=== PATIENT | male | born 1960 | race Caucasian/White ===

== ENCOUNTER 2018-09-05 21:17 | Inpatient (IN) ==
[2018-09-05] MEDS ORDERED: Sod Chloride 0.9% Inj 1,000 ML IV.SIG ONE (21:23)
[2018-09-05] MEDS ORDERED: Morphine Inj 4 MG/ML Vial IV.PUSH ONE ×2 (21:23→23:21)
--- NOTE | 2018-09-05 21:35 | ED ---
HPI General Chief Complaint: Abdominal Pain Stated Complaint: ABD Pain Time Seen by Provider: 09/05/18 21:20 Source: patient and EMS Mode of arrival: EMS Limitations: no limitations History of Present Illness HPI narrative: 58-year-old male that presents to the ED for evaluation of nausea vomiting abdominal pain. Patient has a significant history of Crohn's disease with multiple surgeries in the past. He has had GI bleeds as well as transfusions. Last surgery appears to be 2 years ago. Per patient he follows with Dr. Angeles. He has not seen in our for about a year and a half per patient. He takes currently no medications whatsoever. Unclear as to why. Per patient the symptoms started since last night. He is been very nauseous and has vomited. He states that he has been having a lot of stools in his ileostomy bag is full of stool and leaking. Per patient the pain is 8 out of 10. He was given Zofran on his way here. On initial examination patient is somewhat somnolent but arousable. He does appear to answer questions appropriately. He denies any fevers chills or sweats. He has not seen anybody for this. He denies any bleeding at this time. Related Data Home Medications Medication Instructions Recorded Confirmed No Known Home Medications 09/05/18 09/05/18 Allergies Allergy/AdvReac Type Severity Reaction Status Date / Time No Known Allergies Allergy Verified 07/15/18 21:28 Review of Systems ROS: all other systems reviewed are negative COUNT INCLUDES THE [facility] Medical History Medical History Crohn's disease (Acute) Surgical History Surgical History History of ileostomy (Acute) Family History Family History Other Family history normal Social History Social History Substance History: No History of Abuse Second Hand Smoke Exposure: No Smoking Status: Never smoker How Often Do You Have a Drink Containing Alcohol: Monthly or less Recent Travel in [facility] within the Last 8 Weeks: No Recent Out of Country Travel within the Last 8 Weeks: No Immunization History Tetanus Immunization: Unsure Exam Narrative Exam Narrative: GENERAL: Well appearing SKIN: Focused skin assessment warm/dry. HEAD: Atraumatic. Normocephalic. EYES: Pupils equal and round. No scleral icterus. No injection or drainage. ENT: No nasal bleeding or discharge. Mucous membranes pink and moist. Tongue is midline. No uvula deviation. NECK: Trachea midline. No JVD. CARDIOVASCULAR: Regular rate and rhythm. No murmur appreciated. RESPIRATORY: No accessory muscle use. Clear to auscultation. Breath sounds equal bilaterally. GASTROINTESTINAL: Abdomen soft, distended and tender to touch. Patient has an ileostomy bag with some leakage around the bag. Bag appears to be full of liquidy stool. Hepatic and splenic margins not palpable. MUSCULOSKELETAL: No obvious deformities. No clubbing. No cyanosis. No edema. Full range of motion of the upper and lower extremities bilaterally. 2+ pulses bilaterally. NEUROLOGICAL: Awake and alert. No obvious cranial nerve deficits. Motor grossly within normal limits. Normal speech. PSYCHIATRIC: Appropriate mood and affect; insight and judgment normal. Course Initial Documented Vital Signs Temperature 97.7 F 09/05/18 21:18 Pulse Rate 67 09/05/18 21:18 Respiratory Rate 22 09/05/18 21:18 Blood Pressure 165/108 H 09/05/18 21:18 Pulse Oximetry 99 09/05/18 21:18 Last Documented Vital Signs Temperature 97.7 F 09/05/18 21:18 Pulse Rate 68 09/06/18 01:55 Respiratory Rate 20 09/06/18 01:55 Blood Pressure 155/98 H 09/06/18 01:55 Pulse Oximetry 99 09/06/18 01:55 Medical Decision Making LYNNE Attestation LYNNE supervised visit: Yes Attestation: I, Dr. Kendall, have reviewed the advance practice practitioner's documentation and am in agreement, met with the patient face to face, made the diagnosis, and the medical decision making was done by me. The patient was initially evaluated by jon Causey PA. Please see their complete history and physical. *My assessment and Findings: The patient presents with a history of abdominal pain that he reports began last night. He reports that it is generalized and feels similar to when he has had Crohn's exacerbations in the past. He reports that he has had increased stool output from his colostomy bag. He reports that has been leaking out of the bag. He denies noticing any blood in the stool. He reports having nausea, however he denies any vomiting. The patient incidentally on examination is noted to have ecchymosis around the left eye. When asked about this, he reports that it was related to an injury when he was running through the fam 3 days ago. The patient is hesitant to give any more information regarding the injury. The patient's abdominal examination is remarkable for diffuse tenderness on palpation with decreased bowel sounds audible. Patient's abdominal exam is also remarkable for distention. Stool in the colostomy bag is brown, loose. No obvious blood. During the course of the patient's emergency department visit, the patient's history, examination, and differential diagnosis were reviewed with the patient. The patient was placed on a machinist/machine builder with oximetry and frequent blood pressure monitoring. The patient had IV access obtained and blood work sent for analysis. The patient was initially provided morphine for pain, Zofran for nausea, normal saline 1 L IV fluid bolus. The patient's diagnostic studies were reviewed and remarkable for The patient's diagnostic studies are remarkable for a white count of 11.2, hemoglobin 17.5, platelets 222 with 88.7 neutrophils, PT 9.8, PTT 26, chemistries remarkable for chloride of 110, total bilirubin 1.1, alk phos 138, lipase 94, urinalysis shows trace ketones otherwise unremarkable. C. difficile toxin is negative. Chest x- ray and CT scan of the brain showed no acute abnormality. CT scan of the abdomen and pelvis reveals that the patient is status post total colectomy with right lower quadrant ileostomy small parastomal hernia, diffusely dilated fluid- filled small bowel loops without transition point, differential diagnosis includes enteritis, versus adynamic ileus, versus partial distal obstruction potentially near the stoma. The patient's results were discussed with the patient, including the plan of care. I explained that further testing and/ or monitoring is indicated based on the patient's history, examination, and/ or laboratory findings. Therefore, I recommended admission for additional evaluation. The patient expressed understanding and was agreeable with this plan. The patient was admitted to the hospital in guarded condition and sent to a bed under the care of the [facility] service. [facility] Narrative Medical decision making narrative: 58-year-old male who presents to the ED for evaluation of abdominal pain, nausea and vomiting. Patient was properly examined was found to have signs and symptoms very concerning for significant abdominal etiology. Unclear etiology at this time would likely Crohn's disease. He does have a significant history of colitis and has been here multiple times for this in the past however has not been in this hospital at least for 2 years. He does not take any medications and is unclear as to why. Labs and imagings were ordered. Patient was given IV pain medications antiemetics and fluids. My attending Dr Kendall was made aware of patient's findings and evaluated the patient hersel. Labs and imaging showed essentially unremarkable other than abnormal CT findings which could be consistent of enteritis versus partial obstruction versus a dynamic ileus. Patient was reassessed and still in some discomfort as well as feeling very nauseous. It is difficult to get a good history from the patient. Patient was noted on physical exam to also have a bruise to his left thigh and patient will not tell us what happened in his states something about being on the fam and having an injury there. Because of the patient's history my attending Dr. Kendall recommends admission for further evaluation and at least observation to see if this is an obstruction or not and further treatment as needed. REYNALDO was paged. Dr Sherman agreed to obs admission. Medical Screen Exam Complete: Yes Emergency Medical Condition: Yes Differential Diagnosis Differential Diagnosis: Crohn's flare versus colitis versus acute abdomen versus obstruction versus C. difficile versus GI bleed versus perforation versus sepsis Medical Records Medical records reviewed: Yes I reviewed the patient's medical records. Lab Data Lab results reviewed: Yes I reviewed the patient's lab results. Result diagrams: 09/05/18 21:45 09/05/18 21:45 Lab Results 09/05/18 09/05/18 09/05/18 Range/Units 21:39 21:42 21:45 WBC 11.2 H (4.0-11.0) th/mm3 RBC 5.65 (4.50-5.90) mil/mm3 Hgb 17.5 H (13.0-17.0) gm/dL Hct 49.9 (39.0-51.0) % MCV 88.3 (80.0-100.0) fL MCH 30.9 (27.0-34.0) pg MCHC 35.0 (32.0-36.0) % RDW 13.7 (11.6-17.2) % Plt Count 222 (150-450) th/mm3 MPV 8.7 (7.0-11.0) fL Neut % (Auto) 88.7 H (16.0-70.0) % Lymph % (Auto) 4.2 L (9.0-44.0) % [facility] % (Auto) 6.3 (0.0-8.0) % Eos % (Auto) 0.4 (0.0-4.0) % Baso % (Auto) 0.4 (0.0-2.0) % Neut # (Auto) 10.0 H (1.8-7.7) th/mm3 Lymph # (Auto) 0.5 L (1.0-4.8) th/mm3 [facility] # (Auto) 0.7 (0.0-0.9) th/mm3 Eos # (Auto) 0.0 (0.0-0.4) th/mm3 Baso # (Auto) 0.0 (0.0-0.2) th/mm3 WBC Differential . Differential Comment Auto diff final PT (9.8-11.6) sec INR Ratio APTT (23.4-31.7) sec Sodium (136-145) meq/L Potassium (3.5-5.1) meq/L Chloride (98-107) meq/L Carbon Dioxide (21.0-32.0) meq/L Anion Gap (5-15) meq/L BUN (7-18) mg/dL Creatinine (0.60-1.30) mg/dL Estimated GFR (>89) mL/min Random Glucose (74-106) mg/dL Lactic Acid 1.3 (0.4-2.0) mmol/L Calcium (8.5-10.1) mg/dL Magnesium (1.5-2.5) mg/dL Total Bilirubin (0.2-1.0) mg/dL AST (15-37) U/L ALT (12-78) U/L Alkaline Phosphatase (45-117) U/L Total Protein (6.4-8.2) g/dL Albumin (3.4-5.0) g/dL Lipase (73-393) U/L Urine Color (Yellw/Straw) Urine Clarity (Clear) Urine pH (5.0-8.5) Ur Specific [place] (1.002-1.035) Urine Protein (Neg-Trace) mg/dL Urine Glucose (UA) (Negative) mg/dL Urine Ketones (Negative) mg/dL Urine Occult Blood (Negative) Urine Nitrate (Negative) Urine Bilirubin (Negative) Urine Urobilinogen (Less than 2) mg/dL Ur Leukocyte Esterase (Negative) Urine RBC (0-3) /hpf Urine WBC (0-5) /hpf Urine Mucus (Occasional) /lpf Micro UA Comment Ur Microscopic Review Urine Culture Comments Stl C.difficile DNA Amp Negative (Negative) St C. diff Tox Epid 027 Negative (Negative) Blood Type Antibody Screen 09/05/18 09/05/18 09/05/18 Range/Units 21:45 21:45 21:45 WBC (4.0-11.0) th/mm3 RBC (4.50-5.90) mil/mm3 Hgb (13.0-17.0) gm/dL Hct (39.0-51.0) % MCV (80.0-100.0) fL MCH (27.0-34.0) pg MCHC (32.0-36.0) % RDW (11.6-17.2) % Plt Count (150-450) th/mm3 MPV (7.0-11.0) fL Neut % (Auto) (16.0-70.0) % Lymph % (Auto) (9.0-44.0) % [facility] [facility] % (Auto) (0.0-8.0) % Eos % (Auto) (0.0-4.0) % Baso % (Auto) (0.0-2.0) % Neut # (Auto) (1.8-7.7) th/mm3 Lymph # (Auto) (1.0-4.8) th/mm3 [facility] [facility] # (Auto) (0.0-0.9) th/mm3 Eos # (Auto) (0.0-0.4) th/mm3 Baso # (Auto) (0.0-0.2) th/mm3 WBC Differential Differential Comment PT 9.8 (9.8-11.6) sec INR 1.0 Ratio APTT 26.0 (23.4-31.7) sec Sodium 138 (136-145) meq/L Potassium 3.6 (3.5-5.1) meq/L Chloride 104 (98-107) meq/L Carbon Dioxide 24.4 (21.0-32.0) meq/L Anion Gap 10 (5-15) meq/L BUN 11 (7-18) mg/dL Creatinine 1.03 (0.60-1.30) mg/dL Estimated GFR 74 L (>89) mL/min Random Glucose 110 H (74-106) mg/dL Lactic Acid (0.4-2.0) mmol/L Calcium 9.2 (8.5-10.1) mg/dL Magnesium 2.3 (1.5-2.5) mg/dL Total Bilirubin 1.1 H (0.2-1.0) mg/dL AST 24 (15-37) U/L ALT 38 (12-78) U/L Alkaline Phosphatase 138 H (45-117) U/L Total Protein 8.0 (6.4-8.2) g/dL Albumin 3.8 (3.4-5.0) g/dL Lipase 94 (73-393) U/L Urine Color (Yellw/Straw) Urine Clarity (Clear) Urine pH (5.0-8.5) Ur Specific [place] (1.002-1.035) Urine Protein (Neg-Trace) mg/dL Urine Glucose (UA) (Negative) mg/dL Urine Ketones (Negative) mg/dL Urine Occult Blood (Negative) Urine Nitrate (Negative) Urine Bilirubin (Negative) Urine Urobilinogen (Less than 2) mg/dL Ur Leukocyte Esterase (Negative) Urine RBC (0-3) /hpf Urine WBC (0-5) /hpf Urine Mucus (Occasional) /lpf Micro UA Comment Ur Microscopic Review Urine Culture Comments Stl C.difficile DNA Amp (Negative) St C. diff Tox Epid 027 (Negative) Blood Type A Positive Antibody Screen Negative 09/06/18 Range/Units 02:20 WBC (4.0-11.0) th/mm3 RBC (4.50-5.90) mil/mm3 Hgb (13.0-17.0) gm/dL Hct (39.0-51.0) % MCV (80.0-100.0) fL MCH (27.0-34.0) pg MCHC (32.0-36.0) % RDW (11.6-17.2) % Plt Count (150-450) th/mm3 MPV (7.0-11.0) fL Neut % (Auto) (16.0-70.0) % Lymph % (Auto) (9.0-44.0) % [facility] % (Auto) (0.0-8.0) % Eos % (Auto) (0.0-4.0) % Baso % (Auto) (0.0-2.0) % Neut # (Auto) (1.8-7.7) th/mm3 Lymph # (Auto) (1.0-4.8) th/mm3 [facility] # (Auto) (0.0-0.9) th/mm3 Eos # (Auto) (0.0-0.4) th/mm3 Baso # (Auto) (0.0-0.2) th/mm3 WBC Differential Differential Comment PT (9.8-11.6) sec INR Ratio APTT (23.4-31.7) sec Sodium (136-145) meq/L Potassium (3.5-5.1) meq/L Chloride (98-107) meq/L Carbon Dioxide (21.0-32.0) meq/L Anion Gap (5-15) meq/L BUN (7-18) mg/dL Creatinine (0.60-1.30) mg/dL Estimated GFR (>89) mL/min Random Glucose (74-106) mg/dL Lactic Acid (0.4-2.0) mmol/L Calcium (8.5-10.1) mg/dL Magnesium (1.5-2.5) mg/dL Total Bilirubin (0.2-1.0) mg/dL AST (15-37) U/L ALT (12-78) U/L Alkaline Phosphatase (45-117) U/L Total Protein (6.4-8.2) g/dL Albumin (3.4-5.0) g/dL Lipase (73-393) U/L Urine Color Yellow (Yellw/Straw) Urine Clarity Clear (Clear) Urine pH 5.0 (5.0-8.5) Ur Specific [place] 1.030 (1.002-1.035) Urine Protein Negative (Neg-Trace) mg/dL Urine Glucose (UA) Negative (Negative) mg/dL Urine Ketones Trace H (Negative) mg/dL Urine Occult Blood Small H (Negative) Urine Nitrate Negative (Negative) Urine Bilirubin Negative (Negative) Urine Urobilinogen Less than 2 (Less than 2) mg/dL Ur Leukocyte Esterase Negative (Negative) Urine RBC 1 (0-3) /hpf Urine WBC 1 (0-5) /hpf Urine Mucus Few H (Occasional) /lpf Micro UA Comment Culture not ind Ur Microscopic Review Not Reportable Urine Culture Comments Culture not ind Stl C.difficile DNA Amp (Negative) St C. diff Tox Epid 027 (Negative) Blood Type Antibody Screen Imaging Data Attestation: I personally reviewed and interpreted this imaging study as follows : Radiologist's impression: Abdomen/Pelvis CT 09/05/18 21:23 CONCLUSION: 1. Status post total colectomy with right lower quadrant ileostomy. Small parastomal hernia. Diffusely dilated fluid-filled small bowel loops without transition point. Differential considerations include enteritis, adynamic ileus and partial distal obstruction potentially near the stoma. 2. Trace fluid/inflammatory change near the right lower quadrant. 3. Additional ancillary findings, as above. Chest X-Ray 09/05/18 21:23 CONCLUSION: The lungs are clear. Head CT 09/05/18 21:41 CONCLUSION: 1. No acute intracranial abnormality. . Discharge Plan Discharge Disposition Patient Disposition: ED Admit(ED Internal Use Only) Discharge Order Discharge Orders: ED Use Only Admit Order (Routine); Ordered 09/05/18 Ordered By: Padilla Rodríguez Discharge Details Diagnosis: Intractable nausea and vomiting, Enteritis, Partial bowel obstruction Physicians Team ED Provider: Michelle Kendall ED Midlevel Provider: Padilla Rodríguez Primary Care Provider: Primary Care Aleks,Medina Attending Provider: Dami Odonnell Status ED Status: Left Department Discharge Information Discharge Date/Time: 09/06/18 02:16
--- NOTE | 2018-09-05 21:44 | XR ---
EXAM DATE: 09/05/2018 9:41 PM EST AGE/SEX: 58 years / Male INDICATIONS: Lower chest, upper abdomen pain. CLINICAL DATA: This is the patient's initial encounter. Patient reports that signs and symptoms have been present for 1 day and indicates a pain score of 10/10. MEDICAL/SURGICAL HISTORY: Crohn's disease. . Ileostomy. COMPARISON: [facility] – [place]ST SINGLE AP, 04/28/2015. . FINDINGS: A single AP view of the chest demonstrates the lungs to be symmetrically aerated without evidence of mass, infiltrate or effusion. The cardiomediastinal contours are unremarkable. Osseous structures a re intact. CONCLUSION: The lungs are clear. Electronically signed by: Amadou Petty MD Board Certified Radiologist 09/05/2018 9:43 PM EST
[2018-09-05 21:58] LABS: Hematocrit 49.9 % (39.0-51.0); Hemoglobin 17.5 gm/dL (13.0-17.0); Mean Corpuscular Hemoglobin 30.9 pg (27.0-34.0); Mean Corpuscular Volume 88.3 fL (80.0-100.0); Mean Platelet Volume 8.7 fL (7.0-11.0); Platelet Count 222 th/mm3 (150-450); Red Blood Count 5.65 mil/mm3 (4.50-5.90); Red Cell Distribution Width 13.7 % (11.6-17.2); White Blood Count 11.2 th/mm3 (4.0-11.0)
[2018-09-05 21:59] LABS: Baso % (Auto) 0.4 % (0.0-2.0); Eos % (Auto) 0.4 % (0.0-4.0); Lymph # (Auto) 0.5 th/mm3 (1.0-4.8); Lymph % (Auto) 4.2 % (9.0-44.0); Mono # (Auto) 0.7 th/mm3 (0.0-0.9); Mono % (Auto) 6.3 % (0.0-8.0); Neut % (Auto) 88.7 % (16.0-70.0)
[2018-09-05 22:07] LABS: Prothrombin Time 9.8 sec (9.8-11.6)
[2018-09-05 22:20] LABS: Alanine Aminotransferase 38 U/L (12-78); Albumin 3.8 g/dL (3.4-5.0); Anion Gap 10 meq/L (5-15); Aspartate Aminotransferase 24 U/L (15-37); Blood Urea Nitrogen 11 mg/dL (7-18); Calcium 9.2 mg/dL (8.5-10.1); Carbon Dioxide 24.4 meq/L (21.0-32.0); Chloride 104 meq/L (98-107); Glomerular Filtration Rate 74 mL/min (>89); Glucose,Random 110 mg/dL (74-106); Lipase 94 U/L (73-393); Magnesium 2.3 mg/dL (1.5-2.5); Potassium 3.6 meq/L (3.5-5.1); Sodium 138 meq/L (136-145)
[2018-09-05 22:22] LABS: Alkaline Phosphatase 138 U/L (45-117)
--- NOTE | 2018-09-05 23:11 | CT ---
EXAM DATE: 09/05/2018 11:07 PM EST AGE/SEX: 58 years / Male INDICATIONS: Altered mental status. CLINICAL DATA: This is the patient's initial encounter. Patient reports that signs and symptoms have been present for 1 day and indicates a pain score of 0/10. MEDICAL/SURGICAL HISTORY: Crohn's disease. . Ileostomy RADIATION DOSE: 63.67 CTDI (mGy) COMPARISON: No prior exams available for comparison. TECHNIQUE: CT of the head without contrast. Using automated exposure control and adjustment of the mA and/or kV according to patient size, radiation dose was kept as low as reasonably achievable to ob tain optimal diagnostic quality images. DICOM format image data is available electronically for revi ew and comparison. FINDINGS: Cerebrum: The ventricles are normal for age. No evidence of midline shift, mass lesion, hemorrhage o r acute infarction. No extraaxial fluid collections are seen. Posterior Fossa: The cerebellum and brainstem are intact. The 4th ventricle is midline. The cerebe llopontine angle is unremarkable. Extracranial: The visualized portion of the orbits is intact. Skull: The calvaria is intact. No evidence of skull fracture. CONCLUSION: 1. No acute intracranial abnormality. . Electronically signed by: Moiz Pope MD Board Certified Radiologist 09/05/2018 11:[address]
--- NOTE | 2018-09-05 23:18 | CT ---
EXAM DATE: 09/05/2018 11:07 PM EST AGE/SEX: 58 years / Male INDICATIONS: Abdomen pain. CLINICAL DATA: This is the patient's initial encounter. Patient reports that signs and symptoms have been present for 1 day and indicates a pain score of 8/10. MEDICAL/SURGICAL HISTORY: Crohn's disease. . Ileostomy ORAL CONTRAST: No oral contrast ingested. RADIATION DOSE: 16.49 CTDI (mGy) COMPARISON: [facility] [place] PELVIS W CONTRAST, 04/09/2015. . TECHNIQUE: Multiple contiguous axial images were obtained through the abdomen and pelvis following b olus infusion of 95 ml Omnipaque 350 (iohexol) nonionic water-soluble contrast as a single exam dos e. No oral contrast ingested. Using automated exposure control and adjustment of the mA and/or kV ac cording to patient size, radiation dose was kept as low as reasonably achievable to obtain optimal di agnostic quality images. DICOM format image data is available electronically for review and comparis on. FINDINGS: LOWER LUNGS: Minimal groundglass opacities at the lung bases likely reflecting atelectasis. LIVER: The liver has a homogeneous density without space-occupying lesion. There is no dilation of t he biliary tree. SPLEEN: Homogeneous density without enlargement. PANCREAS: Unremarkable without mass or calcification. KIDNEYS: Kidneys demonstrate symmetrical enhancement and are symmetrical in size without evidence fo r radiopaque renal calculi or hydronephrosis. 4 mm hypodense cystic lesion in the anterior mid right kidney which is too small to characterize. ADRENAL GLANDS: Unremarkable. AORTA: Shelly-aneurysmal. BOWEL/MESENTERY: Patient is status post total colectomy with right lower quadrant ileostomy. There i s a small parastomal hernia. Bowel loops are diffusely dilated and fluid-filled without a transition point identified. These measure up to 4 cm. There is trace amount of mesenteric stranding and fluid i n the right lower quadrant. No pneumatosis or free air. ABDOMINAL WALL: Intact. RETROPERITONEUM: No evidence of adenopathy in the retrocrural, para-aortic, or deep pelvic regions. BLADDER: Distended but otherwise unremarkable. REPRODUCTIVE: Nonspecific enlargement of the prostate gland. BONY STRUCTURES: Degenerative spondylosis of the lumbar spine. CONCLUSION: 1. Status post total colectomy with right lower quadrant ileostomy. Small parastomal hernia. Diffuse ly dilated fluid-filled small bowel loops without transition point. Differential considerations inclu de enteritis, adynamic ileus and partial distal obstruction potentially near the stoma. 2. Trace fluid/inflammatory change near the right lower quadrant. 3. Additional ancillary findings, as above. Electronically signed by: Moiz Pope MD Board Certified Radiologist 09/05/2018 11:[address]
[2018-09-06] MEDS: Sod Chloride 0.9% Inj 1,000 ML IV.CONT SCH ×3 (00:59→18:00)
--- NOTE | 2018-09-06 01:09 | P.HP ---
History of Present Illness Service: [facility] Primary Care Physician: No Primary Care Physician History of Present Illness: 58-year-old male with a past medical history significant for Crohn's disease presents to the emergency department for evaluation of crampy abdominal pain and nausea that began yesterday. The patient is status post colon resection with end ileostomy. He states he has had increased ostomy output since yesterday when his symptoms started. He denies any blood in his ostomy output. He has not had any emesis. No fever/chills. No chest pain or shortness of breath. No focal neurologic deficits. 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 - Medical History Medical History: Medical History (Last Reviewed 09/06/18 @ 01:07 by Jennifer Sherman MD) Crohn's disease - Surgical History Surgical History: Surgical History (Last Reviewed 09/06/18 @ 01:07 by Jennifer Sherman MD) History of ileostomy - Family History Family History: Family History (Last Updated 09/06/18 @ 01:07 by Jennifer Sherman MD) Other Family history normal - Tobacco History Smoking Status: Unknown if ever smoked - Alcohol History How Often Do You Have a Drink Containing Alcohol: Unable to Obtain - Immunization History Tetanus Immunization: Unsure Medications and Allergies Active Medications: Active Medications Sodium Chloride (Ns Inj) 1,000 mls @ 125 mls/hr IV.CONT .Q8H DINORAH Last Admin: 09/06/18 00:59 Dose: 125 mls/hr Ondansetron HCl (Zofran Inj) 4 mg IV.PUSH Q6H PRN PRN Reason: NAUSEA OR VOMITING Sodium Chloride (Ns Flush) 2 ml IV.FLUSH BID DINORAH Sodium Chloride (Ns Flush) 2 ml IV.FLUSH PRN PRN PRN Reason: FLUSH AFTER USING IV ACCESS Allergies Allergy/AdvReac Type Severity Reaction Status Date / Time No Known Allergies Allergy Verified 07/15/18 21:28 Home Medications Medication Instructions Recorded Confirmed Type No Known Home Medications 09/05/18 09/05/18 History Exam Vital signs: Vital Signs 09/05/18 21:18 09/05/18 21:50 09/05/18 22:48 Temperature 97.7 F Pulse Rate 67 61 66 Respiratory Rate 22 20 20 Blood Pressure 165/108 H 163/99 H Pulse Oximetry 99 99 100 09/05/18 23:35 Temperature Pulse Rate 60 Respiratory Rate 18 Blood Pressure 163/99 H Pulse Oximetry 100 Intake & Output 09/05/18 09/05/18 09/06/18 06:59 18:59 06:59 Intake Total 1000 / 1000 Balance 1000 / 1000 Weight 95.254 kg Intake: IV 1000 / 1000 NS Inj 1,000 ML @ Wide Open IV. 1000 / 1000 SIG BOLUS ONE Rx#:[id number] Narrative: Gen.: No acute distress Head: Normocephalic. Atraumatic. EENT: Pupils equal round and reactive to light. Nose without drainage. Airway intact. Throat without injection. Cardiovascular: Regular rate and rhythm. No murmurs, rubs or gallops. Respiratory: Lungs clear to auscultation bilaterally. No wheezes or rhonchi. Abdomen: Soft, diffusely tender to palpation, nondistended. No peritoneal signs. Musculoskeletal: No gross deformities. No edema. Skin: No obvious rashes or erythema. Neuro: Sensory and motor grossly intact. Cranial nerves II through XII grossly intact. Results - Labs CBC & Chem 7: 09/05/18 21:45 09/05/18 21:45 Labs: Laboratory Results - last 24 hr 09/05/18 09/05/18 09/05/18 21:39 21:42 21:45 WBC 11.2 H RBC 5.65 Hgb 17.5 H Hct 49.9 MCV 88.3 MCH 30.9 MCHC 35.0 RDW 13.7 Plt Count 222 MPV 8.7 Neut % (Auto) 88.7 H Lymph % (Auto) 4.2 L [place] % (Auto) 6.3 Eos % (Auto) 0.4 Baso % (Auto) 0.4 Neut # (Auto) 10.0 H Lymph # (Auto) 0.5 L [place] # (Auto) 0.7 Eos # (Auto) 0.0 Baso # (Auto) 0.0 WBC Differential . Differential Comment Auto diff final PT INR APTT Sodium Potassium Chloride Carbon Dioxide Anion Gap BUN Creatinine Estimated GFR Random Glucose Lactic Acid 1.3 Calcium Magnesium Total Bilirubin AST ALT Alkaline Phosphatase Total Protein Albumin Lipase Stl C.difficile DNA Amp Negative St C. diff Tox Epid 027 Negative Blood Type Antibody Screen 1209/05/18 09/05/18 21:45 21:45 21:45 WBC RBC Hgb Hct MCV MCH MCHC RDW Plt Count MPV Neut % (Auto) Lymph % (Auto) [place] % (Auto) Eos % (Auto) Baso % (Auto) Neut # (Auto) Lymph # (Auto) [place] # (Auto) Eos # (Auto) Baso # (Auto) WBC Differential Differential Comment PT 9.8 INR 1.0 APTT 26.0 Sodium 138 Potassium 3.6 Chloride 104 Carbon Dioxide 24.4 Anion Gap 10 BUN 11 Creatinine 1.03 Estimated GFR 74 L Random Glucose 110 H Lactic Acid Calcium 9.2 Magnesium 2.3 Total Bilirubin 1.1 H AST 24 ALT 38 Alkaline Phosphatase 138 H Total Protein 8.0 Albumin 3.8 Lipase 94 Stl C.difficile DNA Amp St C. diff Tox Epid 027 Blood Type A Positive Antibody Screen Negative - Imaging Impressions Abdomen/Pelvis CT 09/05/18 21:23 CONCLUSION: 1. Status post total colectomy with right lower quadrant ileostomy. Small parastomal hernia. Diffusely dilated fluid-filled small bowel loops without transition point. Differential considerations include enteritis, adynamic ileus and partial distal obstruction potentially near the stoma. 2. Trace fluid/inflammatory change near the right lower quadrant. 3. Additional ancillary findings, as above. Chest X-Ray 09/05/18 21:23 CONCLUSION: The lungs are clear. Head CT 09/05/18 21:41 CONCLUSION: 1. No acute intracranial abnormality. . Caprini VTE Risk Assessment Caprini VTE Risk Assessment: Moderate/High Risk (score >= 2) Caprini Risk Assessment Model: Point Value = 1 Point Value = 2 Point Value = 3 Point Value = 5 Age 41-60 Minor surgery BMI > 25 kg/m2 Swollen legs Varicose veins or History of unexplained or recurrent spontaneous Oral contraceptives or hormone replacement Sepsis (< 1 month) Serious lung disease, including pneumonia (< 1 month) Abnormal pulmonary function Acute myocardial infarction Congestive heart failure (< 1 month) History of inflammatory bowel disease Medical patient at bed rest Age 61-74 Arthroscopic surgery Major open surgery (> 45 min) Laparoscopic surgery (> 45 min) Malignancy Confined to bed (> 72 hours) Immobilizing plaster cast Central venous access Age >= 75 History of VTE Family history of VTE Factor V Leiden Prothrombin [id number] Lupus anticoagulant Anticardiolipin antibodies Elevated serum homocysteine Heparin-induced thrombocytopenia Other congenital or acquired thrombophilia Stroke (< 1 month) Elective arthroplasty Hip, pelvis, or leg fracture Acute spinal cord injury (< 1 month) Prophylaxis Regimen: Total Risk Factor Score Risk Level Prophylaxis Regimen 0-1 Low Early ambulation 2 Moderate Order ONE of the following: *Sequential Compression Device (SCD) *Heparin 5000 units SQ BID 3-4 Higher Order ONE of the following medications: *Heparin 5000 units SQ TID *Enoxaparin/Lovenox 40 mg SQ daily (WT < 150 kg, CrCl > 30 mL/min) *Enoxaparin/Lovenox 30 mg SQ daily (WT < 150 kg, CrCl > 10-29 mL/min) *Enoxaparin/Lovenox 30 mg SQ BID (WT < 150 kg, CrCl > 30 mL/min) AND/OR *Sequential Compression Device (SCD) 5 or more Highest Order ONE of the following medications: *Heparin 5000 units SQ TID (Preferred with Epidurals) *Enoxaparin/Lovenox 40 mg SQ daily (WT < 150 kg, CrCl > 30 mL/min) *Enoxaparin/Lovenox 30 mg SQ daily (WT < 150 kg, CrCl > 10-29 mL/min) *Enoxaparin/Lovenox 30 mg SQ BID (WT < 150 kg, CrCl > 30 mL/min) AND *Sequential Compression Device (SCD) Assessment and Plan - Plan Assessment/plan: 1. Abdominal pain CT of the abdomen/pelvis shows diffusely dilated fluid-filled small bowel loops without transition point concerning for enteritis, adynamic ileus or partial distal obstruction potentially near the stoma. Patient is continued to have ostomy output No emesis Monitor Zofran If symptoms worsen or patient begins vomiting, will place NG tube and consult general surgery FEN N.p.o. Electrolytes: Monitor and replete as needed NS at 125 cc/hour
[2018-09-06 02:56] LABS: Bilirubin,Urine Negative (Negative); Clarity,Urine Clear (Clear); Color,Urine Yellow (Yellw/Straw); Glucose,Urine (UA) Negative (Negative); Leukocyte Esterase,Urine Negative (Negative); Mucus,Urine Few /lpf (Occasional); Nitrite,Urine Negative (Negative)
[2018-09-06 07:37] LABS: Baso % (Auto) 0.2 % (0.0-2.0); Eos # (Auto) 0.1 th/mm3 (0.0-0.4); Eos % (Auto) 0.5 % (0.0-4.0); Hematocrit 50.8 % (39.0-51.0); Hemoglobin 17.6 gm/dL (13.0-17.0); Lymph # (Auto) 0.3 th/mm3 (1.0-4.8); Lymph % (Auto) 3.2 % (9.0-44.0); Mean Corpuscular HGB Conc 34.7 % (32.0-36.0); Mean Corpuscular Hemoglobin 31.4 pg (27.0-34.0); Mean Corpuscular Volume 90.4 fL (80.0-100.0); Mono # (Auto) 0.8 th/mm3 (0.0-0.9); Mono % (Auto) 7.7 % (0.0-8.0); Neut # (Auto) 8.8 th/mm3 (1.8-7.7); Neut % (Auto) 88.4 % (16.0-70.0); Platelet Count 217 th/mm3 (150-450); Red Blood Count 5.62 mil/mm3 (4.50-5.90); Red Cell Distribution Width 14.2 % (11.6-17.2)
[2018-09-06 07:56] LABS: Alanine Aminotransferase 35 U/L (12-78); Albumin 3.6 g/dL (3.4-5.0); Anion Gap 9 meq/L (5-15); Aspartate Aminotransferase 22 U/L (15-37); Blood Urea Nitrogen 12 mg/dL (7-18); Calcium 8.7 mg/dL (8.5-10.1); Carbon Dioxide 22.3 meq/L (21.0-32.0); Chloride 105 meq/L (98-107); Glomerular Filtration Rate Greater Than 89 mL/min (>89); Glucose,Random 109 mg/dL (74-106); Potassium 4.1 meq/L (3.5-5.1); Sodium 136 meq/L (136-145)
[2018-09-06 07:59] LABS: Alkaline Phosphatase 133 U/L (45-117); Total Protein 7.6 g/dL (6.4-8.2)
--- NOTE | 2018-09-06 14:20 | P.PNIM ---
Subjective Interval history: Patient is seen lying in bed. He is disheveled, lying with jeans around ankles because he says he is hot. He has blood on his left arm where he disconnected his own IV. Tells me that he is very thirsty. Both complains of and denies nausea. Has not had any vomiting. Continues to have considerable liquid output in colostomy bag. Physical Exam Vital signs: Last Vital Signs Temp 97.7 F 09/06/18 11:38 Pulse 76 09/06/18 11:38 Resp 16 09/06/18 11:38 BP 146/91 H 09/06/18 11:38 Pulse Ox 95 09/06/18 11:38 Intake & Output 09/04/18 09/05/18 09/06/18 09/07/18 06:59 06:59 06:59 06:59 Intake Total 1000 / 1000 Balance 1000 / 1000 Weight 95.254 kg Narrative: GENERAL: Well-nourished, well-developed adult male in no obvious distress. Disheveled SKIN: Warm and dry. Ecchymosis around left eye. Small healing laceration to left forehead. HEAD: Atraumatic. Normocephalic. CARDIOVASCULAR: Regular rate and rhythm. RESPIRATORY: No accessory muscle use. Clear to auscultation. Breath sounds equal bilaterally. GASTROINTESTINAL: Abdomen soft, diffusely tender, distended. Positive bowel sounds. Ostomy in place. Liquid stool in bag. MUSCULOSKELETAL: Extremities without clubbing, cyanosis, or edema. No obvious deformities. NEUROLOGICAL: Awake and alert. No obvious cranial nerve deficits. Motor grossly within normal limits. Normal speech. Results Labs CBC & Chem 7: 09/06/18 04:52 09/06/18 04:52 Labs: Microbiology 09/05/18 21:39 Blood - Peripheral Aerobic Blood Culture - Preliminary No growth in 1 day 09/05/18 21:39 Blood - Peripheral Anaerobic Blood Culture - Preliminary No growth in 1 day 09/05/18 21:39 Blood - Peripheral Aerobic Blood Culture - Preliminary No growth in 1 day 09/05/18 21:39 Blood - Peripheral Anaerobic Blood Culture - Preliminary No growth in 1 day Imaging Imaging: Impressions Abdomen/Pelvis CT 09/05/18 21:23 CONCLUSION: 1. Status post total colectomy with right lower quadrant ileostomy. Small parastomal hernia. Diffusely dilated fluid-filled small bowel loops without transition point. Differential considerations include enteritis, adynamic ileus and partial distal obstruction potentially near the stoma. 2. Trace fluid/inflammatory change near the right lower quadrant. 3. Additional ancillary findings, as above. Chest X-Ray 09/05/18 21:23 CONCLUSION: The lungs are clear. Head CT 09/05/18 21:41 CONCLUSION: 1. No acute intracranial abnormality. . Assessment and Plan Plan Code Status: Patient is a 58-year-old male with a past medical history of Crohn and s/p colon resect with and ileostomy (2014) who presents to the emergency room for evaluation of crampy abdominal pain and nausea that began the day before. Abdominal pain with nausea and vomiting -doubting that this is infectious in nature -afebrile; C. difficile negative ; WBCs WNL; temp normal; blood cultures no growth to date -Monitor ostomy output -Some concern for obstruction however ostomy output remains good; ab is soft and patient is no longer complaining of N/V. Will trial liquid diet. If N/V returns consider placing NG tube and consulting general surgery. -Continue IVF fluid NS at 125 cc/hr DVT prophylaxis: Ambulatory Discharge planning: To be determined. Progress Note: Quality VTE Deep Vein Thrombosis/Pulmonary Embolism Present on Admission: No
[2018-09-07] MEDS: Sod Chloride 0.9% Inj 1,000 ML IV.CONT SCH ×4 (01:34→21:55)
--- NOTE | 2018-09-07 10:33 | P.CONGI ---
History of Present Illness Consult date: 09/07/18 Consult reason: Nausea broarbqk-[id number]-[id number] emesis History of Crohn's Chief complaint: Intractable Nausea, Ileus vs Enteritis vs SBO History of Present Illness: This patient is a 58-year-old male with past medical history significant for Crohn's disease. Patient presented to the emergency department at [facility] with complaint of lower abdominal cramping and nausea. Patient reports surgical history significant for colon resection with ileostomy. Patient states surgery performed in 2014. Upon arrival, patient endorsed increased ostomy output. He denies any noted bleeding but states that ostomy output has been copious and completely liquid. Upon consultation, patient denies any use of NSAIDs or home medications. Patient states that his ostomy output is usually brown colored with oatmeal-like consistency. He reports that every month for 3-5 days he experiences dark liquid output. Patient denies any fever or chills. Patient does endorse intermittent lower abdominal cramping around stoma site. Patient endorses last colonoscopy done in 2014 prior to surgery. Patient denies any history of EGD in the past. He denies use of tobacco or alcohol products. Denies any known family history for gastrointestinal disorders. Patient states that he drank a large amount of fluid yesterday after which he became nauseated and vomited. As per the attending, patient's emesis appeared to have coffee-ground type appearance. Our service has been consulted to evaluate patient for coffee-ground emesis. 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 - Medical History Medical History: Medical History (Last Reviewed 09/06/18 @ 01:07 by Jennifer Sherman MD) Crohn's disease - Surgical History Surgical History: Surgical History (Last Reviewed 09/06/18 @ 01:07 by Jennifer Sherman MD) History of ileostomy - Family History Family History: Family History (Last Updated 09/06/18 @ 01:07 by Jennifer Sherman MD) Other Family history normal - Tobacco History Second Hand Smoke Exposure: No Smoking Status: Never smoker - Alcohol History How Often Do You Have a Drink Containing Alcohol: Monthly or less - Substance Use History Substance History: No History of Abuse - Travel History Recent Travel in the [place] Within the Last 8 Weeks: No Recent Travel Out of the Country Within the Last 8 Weeks: No - Immunization History Tetanus Immunization: Unsure <Nahomy Jaquez - Last Filed: 09/07/18 13:25> - Medical History Medical History: Medical History (Last Reviewed 09/06/18 @ 01:07 by Jennifer Sherman MD) Crohn's disease - Surgical History Surgical History: Surgical History (Last Reviewed 09/06/18 @ 01:07 by Jennifer Sherman MD) History of ileostomy - Family History Family History: Family History (Last Updated 09/06/18 @ 01:07 by Jennifer Sherman MD) Other Family history normal <Srinath Westbrook - Last Filed: 09/07/18 16:38> Medications and Allergies Active Medications: Active Medications Sodium Chloride (Ns Inj) 1,000 mls @ 125 mls/hr IV.CONT .Q8H [facility] Last Admin: 09/07/18 04:19 Dose: 125 mls/hr Ondansetron HCl (Zofran Inj) 4 mg IV.PUSH Q6H PRN PRN Reason: NAUSEA OR VOMITING Last Admin: 09/06/18 15:25 Dose: 4 mg Sodium Chloride (Ns Flush) 2 ml IV.FLUSH BID [facility] Last Admin: 09/06/18 21:38 Dose: Not Given Sodium Chloride (Ns Flush) 2 ml IV.FLUSH PRN PRN PRN Reason: FLUSH AFTER USING IV ACCESS <Nahomy Jaquez - Last Filed: 09/07/18 13:25> Active Medications: Active Medications Sodium Chloride (Ns Inj) 1,000 mls @ 125 mls/hr IV.CONT .Q8H [facility] Last Admin: 09/07/18 12:20 Dose: 125 mls/hr Ondansetron HCl (Zofran Inj) 4 mg IV.PUSH Q6H PRN PRN Reason: NAUSEA OR VOMITING Last Admin: 09/06/18 15:25 Dose: 4 mg Pantoprazole Sodium (Protonix Inj) 40 mg IV.PUSH Q12H [facility]IN[facility] Last Admin: 09/07/18 13:43 Dose: 40 mg Sodium Chloride (Ns Flush) 2 ml IV.FLUSH BID [facility] Last Admin: 09/07/18 10:27 Dose: Not Given Sodium Chloride (Ns Flush) 2 ml IV.FLUSH PRN PRN PRN Reason: FLUSH AFTER USING IV ACCESS <Srinath Westbrook [place] - Last Filed: 09/07/18 16:38> Allergies Allergy/AdvReac Type Severity Reaction Status Date / Time No Known Allergies Allergy Verified 07/15/18 21:28 Home Medications Medication Instructions Recorded Confirmed Type No Known Home Medications 09/05/18 09/05/18 History Exam Vital signs: Vital Signs 09/06/18 11:38 09/06/18 16:23 09/06/18 19:31 Temperature 97.7 F 97.8 F 98.1 F Pulse Rate 76 77 90 Respiratory Rate 16 15 17 Blood Pressure 146/91 H 137/97 H 148/91 H Pulse Oximetry 95 98 97 09/06/18 20:00 09/06/18 23:50 09/07/18 05:01 Temperature 99.0 F 98.5 F Pulse Rate 99 H 90 Respiratory Rate 15 20 18 Blood Pressure 139/89 132/87 Pulse Oximetry 96 09/07/18 07:33 09/07/18 08:00 Temperature 98.4 F Pulse Rate 80 Respiratory Rate 16 15 Blood Pressure 133/82 Pulse Oximetry 96 Intake & Output 09/06/18 09/07/18 09/07/18 18:59 06:59 18:59 Intake Total 1000 / 1000 Output Total 100 / 100 1 / Balance 900 / 900 -1 / -1 Weight 95.254 kg Intake: IV 1000 / 1000 NS Inj 1,000 ML @ 125 mls/hr IV 1000 / 1000 .CONT .Q8H [facility] Rx#:[id number] Output: Stool Amount (Stoma) 100 / 100 1 / Pre-Hospital: Right Lower 100 / 100 1 / Abdomen Other: # Voids 2 Date of Last Bowel Movement 09/06/18 09/06/18 # Emeses 1 - Constitutional no acute distress - Routine HEENT Exam Head: Present: normocephalic - Routine Respiratory Exam Present: CTA bilaterally. Absent: accessory muscle use - Routine Cardiovascular Exam Present: S1 - Routine Abdominal Exam Present: soft, normoactive bowel sounds, hernia, ostomy. Absent: tenderness, distended, guarding, firm Comments: Ileostomy draining copious amounts of dark green stool in drainage bag - Routine Extremities Exam Present: pulses intact. Absent: cyanosis, clubbing, edema - Routine Skin Exam Present: dry, warm. Absent: pallor - Routine Neurological Exam Present: alert, oriented X3 - Routine Psychiatric Exam Present: normal affect, cooperative <Nahomy Jaquez - Last Filed: 09/07/18 13:25> Vital signs: Vital Signs 09/06/18 19:31 09/06/18 20:00 09/06/18 23:50 Temperature 98.1 F 99.0 F Pulse Rate 90 99 H Respiratory Rate 17 15 20 Blood Pressure 148/91 H 139/89 Pulse Oximetry 97 09/07/18 05:01 09/07/18 07:33 09/07/18 08:00 Temperature 98.5 F 98.4 F Pulse Rate 90 80 Respiratory Rate 18 16 15 Blood Pressure 132/87 133/82 Pulse Oximetry 96 96 09/07/18 11:33 09/07/18 15:23 Temperature 98.2 F 98.0 F Pulse Rate 83 75 Respiratory Rate 20 16 Blood Pressure 134/87 129/80 Pulse Oximetry 96 95 Intake & Output 09/06/18 09/07/18 09/07/18 18:59 06:59 18:59 Intake Total 1000 / 1000 1000 / 1000 Output Total 100 / 100 Balance 900 / 900 -1 / -1 1000 / 1000 Weight 95.254 kg Intake: IV 1000 / 1000 1000 / 1000 NS Inj 1,000 ML @ 125 mls/hr IV 1000 / 1000 1000 / 1000 .CONT .Q8H [facility] Rx#:[id number] Output: Stool Amount (Stoma) 100 / 100 Pre-Hospital: Right Lower 100 / 100 Abdomen Other: # Voids 2 Date of Last Bowel Movement 09/06/18 09/06/18 # Emeses 1 <Srinath Westbrook A - Last Filed: 09/07/18 16:38> Results - Labs CBC & Chem 7: 09/06/18 04:52 09/06/18 04:52 <Nahomy Jaquez - Last Filed: 09/07/18 13:25> - Labs CBC & Chem 7: 09/06/18 04:52 09/06/18 04:52 <Srinath Westbrook - Last Filed: 09/07/18 16:38> Assessment and Plan (1) Coffee ground emesis Status: Acute Code(s): K92.0 - Hematemesis (2) Enteritis Status: Acute Code(s): K52.9 - Noninfective gastroenteritis and colitis, unspecified (3) Partial bowel obstruction Status: Acute Code(s): K56.600 - Partial intestinal obstruction, unspecified as to cause - Plan This patient is a 58-year-old male with past medical history significant for Crohn's disease. Patient presented to the emergency department at [facility] with complaint of lower abdominal cramping and nausea. Patient reports surgical history significant for colon resection with ileostomy. Patient states surgery performed in 2014. Upon arrival, patient endorsed increased ostomy output. He denies any noted bleeding but states that ostomy output has been copious and completely liquid. Upon consultation, patient denies any use of NSAIDs or home medications. Patient states that his ostomy output is usually brown colored with oatmeal-like consistency. He reports that every month for 3-5 days he experiences dark liquid output. Patient denies any fever or chills. Patient does endorse intermittent lower abdominal cramping around stoma site. Patient endorses last colonoscopy done in 2014 prior to surgery. Patient denies any history of EGD in the past. He denies use of tobacco or alcohol products. Denies any known family history for gastrointestinal disorders. Patient states that he drank a large amount of fluid yesterday after which he became nauseated and vomited. As per the attending, patient's emesis appeared to have coffee-ground type appearance. Our service has been consulted to evaluate patient for coffee-ground emesis. Coffee-ground emesis History of Crohn's disease Post colon resection with ileostomy-copious liquid output Patient presents with complaint of lower abdominal cramping and nausea times 3 days. Denies any fever or chills. States ostomy with increased liquid output. Denies any noted bleeding. Last colonoscopy done in 2014 prior to colon resection with ileostomy. 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 Large amount of fresh blood seen in the stomach despite continuous suction limited by the amount of clot there, limiting visualization of the stomach. Patient was kept intubated for airway protection. 04/10/[id number] Crohn's disease--severe colitis from the anus to the distal transverse colon. 09/06/2018-WBC 10.0 hemoglobin 17.6 hematocrit 50.8 platelet count 217 INR 1.0 total bilirubin 1.0 AST 22 ALT 35 alk phos 133 09/05/2018 lipase 94 Plan -N.p.o. -Monitor labs- hemoglobin and hematocrit -PPI-pantoprazole 40 mg IV every 12 hours -Monitor ostomy output -Place NG tube for any continued vomiting -Consider general surgery consult -May consider EGD and colonoscopy -Continue IV hydration -Antiemetics as per attending -Supportive care This patient has been seen by myself and Dr. Skinner and this note is written on his behalf - Attending Attestation Dr. Westbrook <Nahomy Jaquez - Last Filed: 09/07/18 13:25> (1) Coffee ground emesis Status: Acute Code(s): K92.0 - Hematemesis (2) Enteritis Status: Acute Code(s): K52.9 - Noninfective gastroenteritis and colitis, unspecified (3) Partial bowel obstruction Status: Acute Code(s): K56.600 - Partial intestinal obstruction, unspecified as to cause - Attending Attestation Likely partial small bowel obstruction secondary to Crohn's disease. Check SBFT and Fecal Calprotectin. IV Solumedrol. Will follow up with you. <Srinath Westbrook - Last Filed: 09/07/18 16:38> <Nahomy Jaquez - Last Filed: 09/07/18 13:25> (3) Partial bowel obstruction Qualifiers: Intestinal obstruction type: unspecified Qualified Code(s): K56.600 - Partial intestinal obstruction, unspecified as to cause <Srinath Westbrook - Last Filed: 09/07/18 16:38> (3) Partial bowel obstruction Qualifiers: Intestinal obstruction type: unspecified Qualified Code(s): K56.600 - Partial intestinal obstruction, unspecified as to cause
--- NOTE | 2018-09-07 12:44 | P.PNIM ---
Subjective Interval history: Patient seen lying in bed. He tells me he still has a lot of intense cramping in his abdomen surrounding his stoma site. This is something he has never had before this episode. No further vomiting; has not had any p.o. intake. Still mildly nauseous. Physical Exam Vital signs: Last Vital Signs Temp 98.2 F 09/07/18 11:33 Pulse 83 09/07/18 11:33 Resp 20 09/07/18 11:33 BP 134/87 09/07/18 11:33 Pulse Ox 96 09/07/18 11:33 Intake & Output 09/05/18 09/06/18 09/07/18 09/08/18 06:59 06:59 06:59 06:59 Intake Total 1000 / 1000 1000 / 1000 1000 / 1000 Output Total 101 / 101 Balance 1000 / 1000 899 / 899 1000 / 1000 Weight 95.254 kg 95.254 kg Narrative: GENERAL: Well-nourished, well-developed adult male in no obvious distress. Disheveled SKIN: Warm and dry. Ecchymosis around left eye. Small healing laceration to left forehead. HEAD: Atraumatic. Normocephalic. CARDIOVASCULAR: Regular rate and rhythm. RESPIRATORY: No accessory muscle use. Clear to auscultation. Breath sounds equal bilaterally. GASTROINTESTINAL: Abdomen soft, diffusely tender, distended. Positive bowel sounds. Ostomy in place. Liquid stool in bag. MUSCULOSKELETAL: Extremities without clubbing, cyanosis, or edema. No obvious deformities. NEUROLOGICAL: Awake and alert. No obvious cranial nerve deficits. Motor grossly within normal limits. Normal speech. Results Labs CBC & Chem 7: 09/06/18 04:52 09/06/18 04:52 Labs: Microbiology 09/05/18 21:39 Blood - Peripheral Aerobic Blood Culture - Preliminary Staphylococcus coag negative 09/05/18 21:39 Blood - Peripheral Anaerobic Blood Culture - Preliminary No growth in 2 days 09/05/18 21:39 Blood - Peripheral Aerobic Blood Culture - Preliminary No growth in 2 days 09/05/18 21:39 Blood - Peripheral Anaerobic Blood Culture - Preliminary No growth in 2 days Assessment and Plan (1) Coffee ground emesis: Code(s): K92.0 - Hematemesis Status: Acute (2) Enteritis: Code(s): K52.9 - Noninfective gastroenteritis and colitis, unspecified Status: Acute (3) Partial bowel obstruction: Code(s): K56.600 - Partial intestinal obstruction, unspecified as to cause Status: Acute Plan Patient is a 58-year-old male with a past medical history of Crohn and s/p colon resect with and ileostomy (2014) who presents to the emergency room for evaluation of crampy abdominal pain and nausea that began the day before. Abdominal pain with nausea and vomiting -infection versus ileus versus obstruction -doubting that this is infectious in nature -afebrile; C. difficile negative ; WBCs WNL; temp normal; blood cultures no growth to date -Monitor ostomy output. if N/V returns consider placing NG tube. NPO for now. -Continue IVF fluid NS at 125 cc/hr -Some concern for obstruction however ostomy output remains good; ab is soft. -Trial of liquid diet 09/06; patient unable to tolerate. copious vomiting with some coffee-ground content noted. Consult placed to GI due to concern for GI bleed. Monitor H&H. -09/07 -patient has failed to improve and is still experiencing considerable intermittent abdominal pain. Will consult general surgery; appreciate assistance. DVT prophylaxis: Ambulatory Discharge planning: To be determined. Progress Note: Quality VTE Deep Vein Thrombosis/Pulmonary Embolism Present on Admission: No _ (1) Partial bowel obstruction Qualifiers: Intestinal obstruction type: unspecified Qualified Code(s): K56.600 - Partial intestinal obstruction, unspecified as to cause
[2018-09-07] MEDS: Pantoprazole Inj 40 MG Vial IV.PUSH SCH (13:43)
--- NOTE | 2018-09-07 17:41 | XR ---
EXAM DATE: 09/07/2018 5:37 PM EST AGE/SEX: 58 years / Male INDICATIONS: Abdominal pain. CLINICAL DATA: This is the patient's subsequent encounter. Patient reports that signs and symptoms h ave been present for 3 days and indicates a pain score of 2/10. MEDICAL/SURGICAL HISTORY: . Crohn's disease. . Colectomy. Ileostomy. COMPARISON: [facility], ABDOMEN FLAT & UPRIGHT, 01/07/2015. . FINDINGS: Today's exam is compared to the prior study. There are some air-filled loops of small and large bowel which are mildly prominent. This is nonspecific and can be seen with an ileus. A few air-fluid level s are noted on the upright study. There is no evidence of free air. The lung bases are grossly clear. There is no significant change in the overall bowel gas pattern compared to the prior examination. CONCLUSION: Nonspecific bowel gas pattern with some air-filled loops of small and large bowel which are mildly pr ominent. The overall bowel gas pattern is not significantly changed compared to the prior exam from 2 015. Electronically signed by: Ignacio Haq MD Board Certified Radiologist 09/07/2018 5:40 PM EST
--- NOTE | 2018-09-07 18:04 | MB ---
cc: Adam Rust MD, Andrew H MD DATE: 09/07/2018 REASON FOR CONSULTATION: Nausea, vomiting, abdominal pain. HISTORY OF PRESENT ILLNESS: Mr. Adorno is a 58-year-old male status post total abdominal colectomy, ileostomy for Crohn disease 2 or 3 years ago. The patient had done well postoperatively, had not been seen for the last year or so. Noted increasing amounts of abdominal discomfort and cramping for a day or so prior to admission with some decrease of his ileostomy output. Has been nauseous, but no vomiting. Appetite has been somewhat poor. He denies any rectal discharge or blood in his ostomy. No fever or chills. The patient felt dehydrated and came to the Emergency Room for additional evaluation. In the ER, he was found to be mildly dehydrated. CT scan showed diffusely distended small bowel with a small ileostomy hernia. No focal point of transition or obstruction was seen. Since CT scanning he has had increasing amounts of output from his ileostomy although he complains of continued abdominal cramping. Attempts to start him on a liquid diet did cause some vomiting yesterday, but he has had no emesis since. Please see the history and physical and consultation for more complete past medical and surgical history. PERTINENT PHYSICAL EXAMINATION: GENERAL: A very pleasant, tall male in no acute distress. HEENT: Remarkable for dry, but pink membranes. Nonicteric sclerae. NECK: Supple without gross adenopathy. LUNGS: Relatively clear, symmetrical expanding. HEART: Regular rhythm. ABDOMEN: Soft and slightly rounded, some tympany, a little doughy to palpation. Ileostomy was pink and producing very thin, small bowel contents. Small parastomal hernia, but really nontender. No masses or hernias elsewhere. EXTREMITIES: Show no cyanosis or clubbing and minimal 1+ pedal edema. LABORATORY STUDIES: White count was 11.2, hemoglobin was 17.6, platelet count was 217,000. Electrolytes were remarkable for BUN of 12, creatinine of 0.8. Normal liver function tests. CT scan was reviewed showing diffuse dilatation of the small bowel up into the area of the ileostomy with a small para-ileostomy hernia. No transition point or area of obstruction. There was a fairly significant distention of the stomach with air fluid levels. IMPRESSION: Generalized ileus type bowel pattern. The patient's ileostomy bag is full of small bowel contents tonight and he does seem to have an appetite and is requesting to try to restart his diet. We will get a flat and upright x-ray to see if he has continued air fluid levels, start him on some IV Reglan to help gastric motility and see if he tolerates liquids. Diet can then be advanced progressively back to a normal diet if he tolerates it and his ileostomy continues to work. No sign of any recurrent Crohn disease, at least by CT scan or personal history. We will see how he does over the next 12-24 hours. Hopefully, taper off his IV fluids if he tolerates liquids. Adam Rust MD AHR/ct , 04:52 PM , 05:02 PM
[2018-09-08] MEDS: Pantoprazole Inj 40 MG Vial IV.PUSH SCH ×3 (00:06→23:36)
[2018-09-08] MEDS: Sod Chloride 0.9% Inj 1,000 ML IV.CONT SCH ×3 (05:24→19:20)
[2018-09-08 07:30] LABS: Baso % (Auto) 0.4 % (0.0-2.0); Eos # (Auto) 0.1 th/mm3 (0.0-0.4); Eos % (Auto) 1.9 % (0.0-4.0); Hematocrit 46.6 % (39.0-51.0); Hemoglobin 16.4 gm/dL (13.0-17.0); Lymph # (Auto) 0.4 th/mm3 (1.0-4.8); Lymph % (Auto) 8.2 % (9.0-44.0); Mean Corpuscular HGB Conc 35.2 % (32.0-36.0); Mean Corpuscular Hemoglobin 31.8 pg (27.0-34.0); Mean Corpuscular Volume 90.5 fL (80.0-100.0); Mean Platelet Volume 8.4 fL (7.0-11.0); Neut # (Auto) 3.2 th/mm3 (1.8-7.7); Neut % (Auto) 68.5 % (16.0-70.0); Platelet Count 176 th/mm3 (150-450); Red Blood Count 5.15 mil/mm3 (4.50-5.90); Red Cell Distribution Width 14.4 % (11.6-17.2); White Blood Count 4.7 th/mm3 (4.0-11.0)
[2018-09-08 07:53] LABS: Potassium 4.2 meq/L (3.5-5.1)
[2018-09-08] MEDS ORDERED: MethylPREDNISolone Sod Succinate Inj 40 MG/ML Vial IV.PUSH SCH (11:00)
[2018-09-08] MEDS ORDERED: Diatrizoate Meglum/Diatrizoate Sod Liq 120 ML Bottle (for RAD diag) PO ONE (11:42)
--- NOTE | 2018-09-08 13:37 | FL ---
EXAM DATE: 09/08/2018 1:30 PM EST AGE/SEX: 58 years / Male INDICATIONS: Abdominal pain. CLINICAL DATA: This is the patient's subsequent encounter. Patient reports that signs and symptoms h ave been present for 3 days and indicates a pain score of 3/10. MEDICAL/SURGICAL HISTORY: . Crohn's disease. . Colectomy. Ileostomy. COMPARISON: [facility], ABDOMEN 2V FLAT & UPRIGHT, 09/07/2018. . FLUORO TIME: 1.5 IMAGE COUNT: 18 RADIATION DOSE: 4192.5 DAP CONTRAST: Oral contrast only FINDINGS: Preliminary film is demonstrates some nonspecific dilatation of multiple small bowel loops throughout the mid abdomen. On initial film contrast is seen filling the stomach. There is contrast seen in the proximal small marylou wel. The contrast progresses through the dilated loops of bowel. At approximately 1.5 hours, contrast is now seen in the ileostomy bag. This indicates that contrast is getting through the dilated loops of bowel. No definite areas of narrowing are demonstrated. CONCLUSION: 1. There are multiple dilated loops of small bowel. Contrast appears to progress through the dilated loops of small bowel to the ileostomy bag in 1.5 hours. No definite mechanical obstruction is demons trated. Electronically signed by: Ignacio Haq MD Board Certified Radiologist 09/08/2018 1:36 PM EST
--- NOTE | 2018-09-08 15:04 | P.PNIM ---
Subjective Interval history: Patient seen lying in bed. He tells me that he has been tolerating his clear liquid with no further vomiting. Still having intermittent abdominal pain-cannot quantify if it has improved or not. No fever or chills. Physical Exam Vital signs: Last Vital Signs Temp 97.6 F 09/08/18 07:57 Pulse 78 09/08/18 07:57 Resp 20 09/08/18 07:57 BP 133/78 09/08/18 07:57 Pulse Ox 96 09/08/18 07:57 Intake & Output 09/06/18 09/07/18 09/08/18 09/09/18 06:59 06:59 06:59 06:59 Intake Total 1000 / 1000 1000 / 1000 3240 / 3240 Output Total 101 / 101 1000 / 1000 Balance 1000 / 1000 899 / 899 2240 / 2240 Weight 95.254 kg 95.254 kg Narrative: GENERAL: Well-nourished, well-developed adult male in no obvious distress. Disheveled SKIN: Warm and dry. Ecchymosis around left eye. Small healing laceration to left forehead. HEAD: Atraumatic. Normocephalic. CARDIOVASCULAR: Regular rate and rhythm. RESPIRATORY: No accessory muscle use. Clear to auscultation. Breath sounds equal bilaterally. GASTROINTESTINAL: Abdomen soft, diffusely tender, distended. Positive bowel sounds. Ostomy in place. Liquid stool in bag. MUSCULOSKELETAL: Extremities without clubbing, cyanosis, or edema. No obvious deformities. NEUROLOGICAL: Awake and alert. No obvious cranial nerve deficits. Motor grossly within normal limits. Normal speech. Results Labs CBC & Chem 7: 09/08/18 06:55 09/08/18 06:55 Labs: Microbiology 09/05/18 21:39 Blood - Peripheral Aerobic Blood Culture - Preliminary No growth in 3 days 09/05/18 21:39 Blood - Peripheral Anaerobic Blood Culture - Preliminary No growth in 3 days 09/05/18 21:39 Blood - Peripheral Aerobic Blood Culture - Preliminary Staphylococcus coag negative 09/05/18 21:39 Blood - Peripheral Anaerobic Blood Culture - Preliminary No growth in 3 days Imaging Imaging: Impressions Abdomen X-Ray 09/07/18 00:00 CONCLUSION: Nonspecific bowel gas pattern with some air-filled loops of small and large bowel which are mildly prominent. The overall bowel gas pattern is not significantly changed compared to the prior exam from 2014. Small Bowel X-Ray 09/08/18 00:00 CONCLUSION: 1. There are multiple dilated loops of small bowel. Contrast appears to progress through the dilated loops of small bowel to the ileostomy bag in 1.5 hours. No definite mechanical obstruction is demonstrated. Assessment and Plan (1) Coffee ground emesis: Code(s): K92.0 - Hematemesis Status: Acute (2) Enteritis: Code(s): K52.9 - Noninfective gastroenteritis and colitis, unspecified Status: Acute (3) Partial bowel obstruction: Code(s): K56.600 - Partial intestinal obstruction, unspecified as to cause Status: Acute Plan Patient is a 58-year-old male with a past medical history of Crohn and s/p colon resect with and ileostomy (2014) who presents to the emergency room for evaluation of crampy abdominal pain and nausea that began the day before. Abdominal pain with nausea and vomiting -infection versus ileus versus obstruction -doubting that this is infectious in nature -afebrile; C. difficile negative ; WBCs WNL; temp normal; blood cultures no growth to date -Trial of liquid diet 09/06; patient unable to tolerate. copious vomiting with some coffee-ground content noted. Consult placed to GI due to concern for GI bleed. Monitor H&H. -Monitor ostomy output. if N/V returns consider placing NG tube. -Continue IVF fluid NS at 125 cc/hr until taking orals consistently -Some concern for obstruction however ostomy output remains good; ab is soft. -09/07 -patient has failed to improve and is still experiencing considerable intermittent abdominal pain. Will consult general surgery; appreciate assistance. Examined by Dr. Rust; no surgical intervention indicated at this time -09/08 Clear diet-advance as tolerated -IV Solu-Medrol added per GI DVT prophylaxis: Ambulatory Discharge planning: To be determined. Progress Note: Quality VTE Deep Vein Thrombosis/Pulmonary Embolism Present on Admission: No _ (1) Partial bowel obstruction Qualifiers: Intestinal obstruction type: unspecified Qualified Code(s): K56.600 - Partial intestinal obstruction, unspecified as to cause
--- NOTE | 2018-09-08 17:34 | P.PNCS ---
Subjective Interval history: afebrile, VSS UO good stoma functioning emesis after SBS Objective Result Diagrams: 09/08/18 06:55 09/08/18 06:55 Objective Remarks: PE alert Abd - full, some tympany, non-tender, stoma bag full Assessment and Plan - Plan Imp: SBS shows no obstruction OOB try PO again cont IVF hydration
--- NOTE | 2018-09-08 18:38 | P.PNGI ---
Subjective Interval history: Patient semi-recumbent in bed Denies abdominal pain Reports nausea vomiting location man reports patient had 1200 cc of emesis. Physical Exam Vital signs: Vital Signs 09/07/18 20:00 09/07/18 21:40 09/07/18 23:56 Temperature 98.2 F 98.2 F Pulse Rate 74 73 Respiratory Rate 16 16 16 Blood Pressure 131/84 129/78 Pulse Oximetry 98 99 09/08/18 01:30 09/08/18 04:00 09/08/18 07:57 Temperature 97.6 F 97.6 F Pulse Rate 69 78 Respiratory Rate 16 16 20 Blood Pressure 124/81 133/78 Pulse Oximetry 99 96 09/08/18 08:00 09/08/18 15:48 Temperature 97.5 F L Pulse Rate 80 Respiratory Rate 20 20 Blood Pressure 140/56 L Pulse Oximetry 96 Intake & Output 09/07/18 09/08/18 09/08/18 18:59 06:59 18:59 Intake Total 1240 / 1240 1999 Output Total 1000 / 1000 Balance 240 / 240 1999 Intake: IV 1000 / 1000 1999 NS Inj 1,000 ML @ 125 mls/hr IV 1000 / 1000 1999 .CONT .Q8H [facility] Rx#:[id number] Oral 240 / 240 Output: Stool Amount (Stoma) 1000 / 1000 Pre-Hospital: Right Lower 1000 / 1000 Abdomen Other: Date of Last Bowel Movement 09/06/18 09/07/18 09/08/18 - Constitutional no acute distress, chronically ill appearing - Routine HEENT Exam Head: Present: normocephalic - Routine Respiratory Exam Present: CTA bilaterally. Absent: accessory muscle use - Routine Cardiovascular Exam Present: RRR - Routine Abdominal Exam Present: soft, normoactive bowel sounds, ostomy. Absent: tenderness, distended , guarding, firm Comments: Ileostomy productive of moderate amount of brown liquid stool no obvious bleeding - Routine Extremities Exam Absent: edema - Routine Skin Exam Present: dry, warm. Absent: pallor - Routine Neurological Exam Present: alert Results - Labs CBC & Chem 7: 09/08/18 06:55 09/08/18 06:55 Laboratory Results - last 24 hr 09/08/18 09/08/18 06:55 06:55 WBC 4.7 RBC 5.15 Hgb 16.4 Hct 46.6 MCV 90.5 MCH 31.8 MCHC 35.2 RDW 14.4 Plt Count 176 MPV 8.4 Neut % (Auto) 68.5 Lymph % (Auto) 8.2 L [place] % (Auto) 21.0 H Eos % (Auto) 1.9 Baso % (Auto) 0.4 Neut # (Auto) 3.2 Lymph # (Auto) 0.4 L [place] # (Auto) 1.0 H Eos # (Auto) 0.1 Baso # (Auto) 0.0 WBC Differential . Differential Comment Auto diff final Sodium 138 Potassium 4.2 Chloride 106 Carbon Dioxide 25.0 Anion Gap 7 BUN 19 H Creatinine 1.08 Estimated GFR 70 L Random Glucose 82 Calcium 8.0 L Microbiology 09/05/18 21:39 Blood - Peripheral Aerobic Blood Culture - Preliminary No growth in 3 days 09/05/18 21:39 Blood - Peripheral Anaerobic Blood Culture - Preliminary No growth in 3 days 09/05/18 21:39 Blood - Peripheral Aerobic Blood Culture - Preliminary Staphylococcus coag negative 09/05/18 21:39 Blood - Peripheral Anaerobic Blood Culture - Preliminary No growth in 3 days - Imaging Impressions Small Bowel X-Ray 09/08/18 00:00 CONCLUSION: 1. There are multiple dilated loops of small bowel. Contrast appears to progress through the dilated loops of small bowel to the ileostomy bag in 1.5 hours. No definite mechanical obstruction is demonstrated. Assessment and Plan (1) Coffee ground emesis Status: Acute Code(s): K92.0 - Hematemesis (2) Enteritis Status: Acute Code(s): K52.9 - Noninfective gastroenteritis and colitis, unspecified (3) Partial bowel obstruction Status: Acute Code(s): K56.600 - Partial intestinal obstruction, unspecified as to cause - Plan This patient is a 58-year-old male with past medical history significant for Crohn's disease. Patient presented to the emergency department at [facility] with complaint of lower abdominal cramping and nausea. Patient reports surgical history significant for colon resection with ileostomy. Patient states surgery performed in 2014. Upon arrival, patient endorsed increased ostomy output. He denies any noted bleeding but states that ostomy output has been copious and completely liquid. Upon consultation, patient denies any use of NSAIDs or home medications. Patient states that his ostomy output is usually brown colored with oatmeal-like consistency. He reports that every month for 3-5 days he experiences dark liquid output. Patient denies any fever or chills. Patient does endorse intermittent lower abdominal cramping around stoma site. Patient endorses last colonoscopy done in 2014 prior to surgery. Patient denies any history of EGD in the past. He denies use of tobacco or alcohol products. Denies any known family history for gastrointestinal disorders. Patient states that he drank a large amount of fluid yesterday after which he became nauseated and vomited. As per the attending, patient's emesis appeared to have coffee-ground type appearance. Our service has been consulted to evaluate patient for coffee-ground emesis. Coffee-ground emesis History of Crohn's disease Post colon resection with ileostomy-copious liquid output Patient presents with complaint of lower abdominal cramping and nausea times 3 days. Denies any fever or chills. States ostomy with increased liquid output. Denies any noted bleeding. Last colonoscopy done in 2014 prior to colon resection with ileostomy. 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 Large amount of fresh blood seen in the stomach despite continuous suction limited by the amount of clot there, limiting visualization of the stomach. Patient was kept intubated for airway protection. [id number] Crohn's disease--severe colitis from the anus to the distal transverse colon. 09/06/2018-WBC 10.0 hemoglobin 17.6 hematocrit 50.8 platelet count 217 INR 1.0 total bilirubin 1.0 AST 22 ALT 35 alk phos 133 09/05/2018 lipase 94 09/08/2018 Patient awake and alert Denies abdominal pain Brown liquid stool noted in ileostomy drainage bag Patient reports increased nausea vomiting, 1200 mL's per staff nurse WBC 4.7 hemoglobin 16.4 hematocrit 46.6 09/05/2018 lipase 94 09/06/2018 total bili 1.0 AST 22 ALT 35 alk phos 133 09/08/2018 small bowel follow-through-. There are multiple dilated loops of small bowel. Contrast appears to progress through the dilated loops of small bowel to the ileostomy bag in 1.5 hours. No definite mechanical obstruction is demonstrated. Plan -Full liquid diet -Monitor labs -PPI -Monitor output -Appreciate general surgery consult -Continue IV hydration -Antiemetics as per attending -Supportive care -Cipro/ Flagyl IV -Further recommendations to follow This patient has been seen by myself and Dr. Skinner and this note is written on his behalf - Attending Attestation Dr. Skinner (3) Partial bowel obstruction Qualifiers: Intestinal obstruction type: unspecified Qualified Code(s): K56.600 - Partial intestinal obstruction, unspecified as to cause
[2018-09-08] MEDS: Ciprofloxacin 400 MG/200 ML 400 MG/200 ML PIGGYBACK IV.SIG SCH (20:50)
[2018-09-09] MEDS: MethylPREDNISolone Sod Succinate Inj 40 MG/ML Vial IV.PUSH SCH ×3 (03:46→17:34)
[2018-09-09] MEDS: Sod Chloride 0.9% Inj 1,000 ML IV.CONT SCH ×4 (03:46→21:46)
[2018-09-09] MEDS: Ciprofloxacin 400 MG/200 ML 400 MG/200 ML PIGGYBACK IV.SIG SCH ×2 (08:39→19:35)
[2018-09-09] MEDS: Pantoprazole Inj 40 MG Vial IV.PUSH SCH ×2 (11:03→23:23)
--- NOTE | 2018-09-09 11:25 | P.PNGI ---
Subjective Interval history: Patient awake and alert Denies abdominal pain or cramping States tolerating full liquid diet Denies nausea Ileostomy productive of moderate amount of dark colored green stool <JaquezNahomy - Last Filed: 09/09/18 11:21> Physical Exam Vital signs: Vital Signs 09/08/18 15:48 09/08/18 19:48 09/09/18 00:00 Temperature 97.5 F L 98.1 F 97.8 F Pulse Rate 80 78 73 Respiratory Rate 20 18 20 Blood Pressure 140/56 L 135/88 128/80 Pulse Oximetry 96 97 97 09/09/18 03:36 09/09/18 08:00 Temperature 97.9 F 98.2 F Pulse Rate 71 78 Respiratory Rate 18 16 Blood Pressure 133/88 143/95 H Pulse Oximetry 96 96 Intake & Output 09/08/18 09/09/18 09/09/18 18:59 06:59 18:59 Intake Total 1780 / 1780 200 / 200 Output Total 3750 / 3750 Balance -1970 / -1969 200 / 200 Intake: IV 1300 / 1300 200 / 200 NS Inj 1,000 ML @ 100 mls/hr IV 1000 / 1000 .CONT .Q10H [facility] Rx#:[id number] Cipro 400 MG/200 ML Inj 400 mg 200 / 200 200 / 200 In 200 ml @ 200 mls/hr IV.SIG Q12H [facility] Rx#:[id number] Flagyl 500 MG Inj 100 ML @ 100 100 / 100 mls/hr IV.SIG Q12H [facility] Rx#: [id number] Oral 480 / 480 Output: Urine 600 / 600 Stool 1550 / 1550 Emesis 1250 / 1250 Stool Amount (Stoma) 350 / 350 Pre-Hospital: Right Lower 350 / 350 Abdomen Other: Date of Last Bowel Movement 09/08/18 09/08/18 # Emeses 1 - Constitutional no acute distress, chronically ill appearing - Routine HEENT Exam Head: Present: normocephalic - Routine Respiratory Exam Present: CTA bilaterally. Absent: accessory muscle use - Routine Cardiovascular Exam Present: RRR - Routine Abdominal Exam Present: soft, normoactive bowel sounds, ostomy. Absent: tenderness, distended , guarding, firm - Routine Extremities Exam Present: pulses intact. Absent: edema - Routine Skin Exam Present: dry, warm. Absent: pallor - Routine Neurological Exam Present: alert - Detailed Neurological Exam: Coma Scale Motor Response: Extension - Routine Psychiatric Exam Present: normal affect, cooperative <Nahomy Jaquez - Last Filed: 09/09/18 11:21> Vital signs: Vital Signs 09/08/18 15:48 09/08/18 19:48 09/09/18 00:00 Temperature 97.5 F L 98.1 F 97.8 F Pulse Rate 80 78 73 Respiratory Rate 20 18 20 Blood Pressure 140/56 L 135/88 128/80 Pulse Oximetry 96 97 97 09/09/18 03:36 09/09/18 08:00 09/09/18 11:57 Temperature 97.9 F 98.2 F 97.8 F Pulse Rate 71 78 70 Respiratory Rate 18 16 16 Blood Pressure 133/88 143/95 H 162/95 H Pulse Oximetry 96 96 96 Intake & Output 09/08/18 09/09/18 09/09/18 18:59 06:59 18:59 Intake Total 1780 / 1780 1000 / 1000 Output Total 3750 / 3750 Balance -1969 / -1969 1000 / 1000 Intake: IV 1300 / 1300 1000 / 1000 NS Inj 1,000 ML @ 100 mls/hr IV 1000 / 1000 700 / 700 .CONT .Q10H [facility] Rx#:[id number] Cipro 400 MG/200 ML Inj 400 mg 200 / 200 200 / 200 In 200 ml @ 200 mls/hr IV.SIG Q12H [facility] Rx#:[id number] Flagyl 500 MG Inj 100 ML @ 100 100 / 100 100 / 100 mls/hr IV.SIG Q12H [facility] Rx#: [id number] Oral 480 / 480 Output: Urine 600 / 600 Stool 1550 / 1550 Emesis 1250 / 1250 Stool Amount (Stoma) 350 / 350 Pre-Hospital: Right Lower 350 / 350 Abdomen Other: Date of Last Bowel Movement 09/08/18 09/08/18 09/08/18 # Emeses 1 <Srinath Westbrook - Last Filed: 09/09/18 13:16> Results - Labs CBC & Chem 7: 09/08/18 06:55 09/08/18 06:55 Microbiology 09/05/18 21:39 Blood - Peripheral Aerobic Blood Culture - Preliminary No growth in 4 days 09/05/18 21:39 Blood - Peripheral Anaerobic Blood Culture - Preliminary No growth in 4 days 09/05/18 21:39 Blood - Peripheral Aerobic Blood Culture - Preliminary Staphylococcus coag negative 09/05/18 21:39 Blood - Peripheral Anaerobic Blood Culture - Preliminary No growth in 4 days 09/08/18 19:32 Stool Enteric Pathogens (PCR) - Final No enteric pathogens detected by PCR (No Salmonella sp., Shigella sp., Campylobacter sp., Yersinia enterocolitica, Vibrio sp., Norovirus, or EHEC (Shiga Toxin 1 or Shiga Toxin 2) detected. - Imaging Impressions Small Bowel X-Ray 09/08/18 00:00 CONCLUSION: 1. There are multiple dilated loops of small bowel. Contrast appears to progress through the dilated loops of small bowel to the ileostomy bag in 1.5 hours. No definite mechanical obstruction is demonstrated. <Nahomy Jaquez - Last Filed: 09/09/18 11:21> - Labs CBC & Chem 7: 09/08/18 06:55 09/08/18 06:55 Microbiology 09/08/18 19:32 Stool Stool for WBCs - Final No WBC's seen 09/05/18 21:39 Blood - Peripheral Aerobic Blood Culture - Preliminary No growth in 4 days 09/05/18 21:39 Blood - Peripheral Anaerobic Blood Culture - Preliminary No growth in 4 days 09/05/18 21:39 Blood - Peripheral Aerobic Blood Culture - Preliminary Staphylococcus coag negative 09/05/18 21:39 Blood - Peripheral Anaerobic Blood Culture - Preliminary No growth in 4 days 09/08/18 19:32 Stool Enteric Pathogens (PCR) - Final No enteric pathogens detected by PCR (No Salmonella sp., Shigella sp., Campylobacter sp., Yersinia enterocolitica, Vibrio sp., Norovirus, or EHEC (Shiga Toxin 1 or Shiga Toxin 2) detected. - Imaging Impressions Small Bowel X-Ray 09/08/18 00:00 CONCLUSION: 1. There are multiple dilated loops of small bowel. Contrast appears to progress through the dilated loops of small bowel to the ileostomy bag in 1.5 hours. No definite mechanical obstruction is demonstrated. <Srinath Westbrook - Last Filed: 09/09/18 13:16> Assessment and Plan (1) Coffee ground emesis Status: Acute Code(s): K92.0 - Hematemesis (2) Enteritis Status: Acute Code(s): K52.9 - Noninfective gastroenteritis and colitis, unspecified (3) Partial bowel obstruction Status: Acute Code(s): K56.600 - Partial intestinal obstruction, unspecified as to cause - Plan This patient is a 58-year-old male with past medical history significant for Crohn's disease. Patient presented to the emergency department at [facility] with complaint of lower abdominal cramping and nausea. Patient reports surgical history significant for colon resection with ileostomy. Patient states surgery performed in 2014. Upon arrival, patient endorsed increased ostomy output. He denies any noted bleeding but states that ostomy output has been copious and completely liquid. Upon consultation, patient denies any use of NSAIDs or home medications. Patient states that his ostomy output is usually brown colored with oatmeal-like consistency. He reports that every month for 3-5 days he experiences dark liquid output. Patient denies any fever or chills. Patient does endorse intermittent lower abdominal cramping around stoma site. Patient endorses last colonoscopy done in 2014 prior to surgery. Patient denies any history of EGD in the past. He denies use of tobacco or alcohol products. Denies any known family history for gastrointestinal disorders. Patient states that he drank a large amount of fluid yesterday after which he became nauseated and vomited. As per the attending, patient's emesis appeared to have coffee-ground type appearance. Our service has been consulted to evaluate patient for coffee-ground emesis. Coffee-ground emesis History of Crohn's disease Post colon resection with ileostomy-copious liquid output Patient presents with complaint of lower abdominal cramping and nausea times 3 days. Denies any fever or chills. States ostomy with increased liquid output. Denies any noted bleeding. Last colonoscopy done in 2014 prior to colon resection with ileostomy. 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 Large amount of fresh blood seen in the stomach despite continuous suction limited by the amount of clot there, limiting visualization of the stomach. Patient was kept intubated for airway protection. 04/10/[id number] Crohn's disease--severe colitis from the anus to the distal transverse colon. 09/06/2018-WBC 10.0 hemoglobin 17.6 hematocrit 50.8 platelet count 217 INR 1.0 total bilirubin 1.0 AST 22 ALT 35 alk phos 133 09/05/2018 lipase 94 09/08/2018 Patient awake and alert Denies abdominal pain Brown liquid stool noted in ileostomy drainage bag Patient reports increased nausea vomiting, 1200 mL's per staff nurse WBC 4.7 hemoglobin 16.4 hematocrit 46.6 09/05/2018 lipase 94 09/06/2018 total bili 1.0 AST 22 ALT 35 alk phos 133 09/08/2018 small bowel follow-through-. There are multiple dilated loops of small bowel. Contrast appears to progress through the dilated loops of small bowel to the ileostomy bag in 1.5 hours. No definite mechanical obstruction is demonstrated. 09/09/2018 Possible Crohn's flare Patient awake and alert Denies abdominal pain nausea or vomiting Ileostomy productive of moderate amount of brown to green dark colored stool Most recent labs 09/08/2018 as noted above Plan -Full liquid diet -Monitor labs-electrolytes hemoglobin and hematocrit -Continue PPI -Monitor output -Continue IV hydration -Antiemetics as per attending -Supportive care -Continue Cipro/ Flagyl IV -Further recommendations to follow This patient has been seen by myself and and this note is written on his behalf - Attending Attestation Dr. Westbrook <Nahomy Jaquez - Last Filed: 09/09/18 11:21> (1) Coffee ground emesis Status: Acute Code(s): K92.0 - Hematemesis (2) Enteritis Status: Acute Code(s): K52.9 - Noninfective gastroenteritis and colitis, unspecified (3) Partial bowel obstruction Status: Acute Code(s): K56.600 - Partial intestinal obstruction, unspecified as to cause - Attending Attestation Seen and examined, plan as above. Likely PSBO is improving now. Will need further evaluation for Crohn's and possible clinical care leader treatment. Will follow up with you. <Srinath Westbrook - Last Filed: 09/09/18 13:16> <Nahomy Jaquez - Last Filed: 09/09/18 11:21> (3) Partial bowel obstruction Qualifiers: Intestinal obstruction type: unspecified Qualified Code(s): K56.600 - Partial intestinal obstruction, unspecified as to cause <Srinath Westbrook - Last Filed: 09/09/18 13:16> (3) Partial bowel obstruction Qualifiers: Intestinal obstruction type: unspecified Qualified Code(s): K56.600 - Partial intestinal obstruction, unspecified as to cause
--- NOTE | 2018-09-09 14:07 | P.PN ---
Subjective Interval history: no abdominal pain, nausea or vomiting, colostomy with liquid stools does not like the full liquid diet- feels me up easy - wants real food Physical Exam Vital signs: Vital Signs 09/08/18 15:48 09/08/18 19:48 09/09/18 00:00 Temperature 97.5 F L 98.1 F 97.8 F Pulse Rate 80 78 73 Respiratory Rate 20 18 20 Blood Pressure 140/56 L 135/88 128/80 Pulse Oximetry 96 97 97 09/09/18 03:36 09/09/18 08:00 09/09/18 11:57 Temperature 97.9 F 98.2 F 97.8 F Pulse Rate 71 78 70 Respiratory Rate 18 16 16 Blood Pressure 133/88 143/95 H 162/95 H Pulse Oximetry 96 96 96 Intake & Output 09/08/18 09/09/18 09/09/18 18:59 06:59 18:59 Intake Total 1780 / 1780 1000 / 1000 Output Total 3750 / 3750 Balance -1969 / -1969 1000 / 1000 Intake: IV 1300 / 1300 1000 / 1000 NS Inj 1,000 ML @ 100 mls/hr IV 1000 / 1000 700 / 700 .CONT .Q10H [facility] Rx#:[id number] Cipro 400 MG/200 ML Inj 400 mg 200 / 200 200 / 200 In 200 ml @ 200 mls/hr IV.SIG Q12H [facility] Rx#:[id number] Flagyl 500 MG Inj 100 ML @ 100 100 / 100 100 / 100 mls/hr IV.SIG Q12H [facility] Rx#: [id number] Oral 480 / 480 Output: Urine 600 / 600 Stool 1550 / 1550 Emesis 1250 / 1250 Stool Amount (Stoma) 350 / 350 Pre-Hospital: Right Lower 350 / 350 Abdomen Other: Date of Last Bowel Movement 09/08/18 09/08/18 09/08/18 # Emeses 1 Narrative: GENERAL: Well-nourished, well-developed adult male in no obvious distress. Disheveled SKIN: Warm and dry. Ecchymosis around left eye. Small healing laceration to left forehead. HEAD: Atraumatic. Normocephalic. CARDIOVASCULAR: Regular rate and rhythm. RESPIRATORY: No accessory muscle use. Clear to auscultation. Breath sounds equal bilaterally. GASTROINTESTINAL: Abdomen soft, nontender, good bowel sounds,colostomy with greenish Liquid stool in bag. MUSCULOSKELETAL: Extremities without clubbing, cyanosis, or edema. No obvious deformities. NEUROLOGICAL: Awake and alert. No obvious cranial nerve deficits. Motor grossly within normal limits. Normal speech. Results - Labs CBC & Chem 7: 09/08/18 06:55 09/08/18 06:55 Microbiology 09/08/18 19:32 Stool Stool for WBCs - Final No WBC's seen 09/05/18 21:39 Blood - Peripheral Aerobic Blood Culture - Preliminary No growth in 4 days 09/05/18 21:39 Blood - Peripheral Anaerobic Blood Culture - Preliminary No growth in 4 days 09/05/18 21:39 Blood - Peripheral Aerobic Blood Culture - Preliminary Staphylococcus coag negative 09/05/18 21:39 Blood - Peripheral Anaerobic Blood Culture - Preliminary No growth in 4 days 09/08/18 19:32 Stool Enteric Pathogens (PCR) - Final No enteric pathogens detected by PCR (No Salmonella sp., Shigella sp., Campylobacter sp., Yersinia enterocolitica, Vibrio sp., Norovirus, or EHEC (Shiga Toxin 1 or Shiga Toxin 2) detected. Assessment and Plan - Assessment (1) Coffee ground emesis Code(s): K92.0 - Hematemesis Status: Acute (2) Enteritis Code(s): K52.9 - Noninfective gastroenteritis and colitis, unspecified Status : Acute (3) Partial bowel obstruction Code(s): K56.600 - Partial intestinal obstruction, unspecified as to cause Status: Acute - Plan 58-year-old male with a past medical history of Crohn and s/p colon resect with and ileostomy (2014) who presents to the emergency room for evaluation of crampy abdominal pain and nausea that began the day before. Abdominal pain with nausea and vomiting - Partial SBO Possible Crohns flare -on full liquid- not happy- ready to try regular diet- start mechanical soft diet and monitor -Monitor ostomy output. -Continue IVF fluid NS at 125 cc/hr until taking orals consistently -Some concern for obstruction however ostomy output remains good; ab is soft. -CRS/GI ff -IV Solu-Medrol q12 per CRS DVT prophylaxis: Ambulatory Discharge planning: To be determined. (3) Partial bowel obstruction Qualifiers: Intestinal obstruction type: unspecified Qualified Code(s): K56.600 - Partial intestinal obstruction, unspecified as to cause
[2018-09-10] MEDS: MethylPREDNISolone Sod Succinate Inj 40 MG/ML Vial IV.PUSH SCH (05:44)
[2018-09-10 09:08] VITALS: RESP 17
[2018-09-10] MEDS: Ciprofloxacin 400 MG/200 ML 400 MG/200 ML PIGGYBACK IV.SIG SCH (09:24)
[2018-09-10] MEDS: Pantoprazole Inj 40 MG Vial IV.PUSH SCH (11:00)
--- NOTE | 2018-09-10 12:03 | P.DS ---
DS: Providers Date of admission: 09/08/18 15:10 Primary care physician: Medina Primary Care Physician She is a pleasant 58-year-old male with past medical history of Crohn's disease who presented with complaints of nausea, vomiting, abdominal pain to the emergency department. Patient was admitted with the following treatments and services were provided in his care. Consultation was appreciated by gastroenterology for evaluation of nausea, vomiting, and abdominal pain. While hospitalized patient was treated briefly with empiric antibiotics. Patient was given a trial of steroid medication as well. Evaluation was also completed by colorectal surgery. Small bowel x-ray obtained did not show any definitive mechanical obstruction. Patient was slowly increased along in his diet and was able to tolerate p.o. without further symptoms of nausea, vomiting, or abdominal pain. Prior to discharge patient felt back to his baseline and was comfortable with discharge home with plan outpatient follow-up with his colorectal team. Patient to be discharged with outpatient follow-up with primary doctor as well. Consults: 09/06/18 15:23 Consult to Gastroenterology Routine Consulting Provider: Ishan Skinner V Reason for Consultation: Coffee-ground emesis Notified:: Service Spoke with:: DEREK Date Notified:: 09/06/18 Time Notified:: 15:25 Ordering Provider: ROYER 09/07/18 15:48 Consult to Colorectal Surgery Routine Consulting Provider: Adam Rust Patient known to:: Adam Rust Reason for Consultation: bowel OBS Notified:: Office Spoke with:: REZA Date Notified:: 09/07/18 Time Notified:: 15:55 Ordering Provider: ELISABETH Brief History from admission: 58-year-old male with a past medical history significant for Crohn's disease presents to the emergency department for evaluation of crampy abdominal pain and nausea that began yesterday. The patient is status post colon resection with end ileostomy. He states he has had increased ostomy output since yesterday when his symptoms started. He denies any blood in his ostomy output. He has not had any emesis. No fever/chills. No chest pain or shortness of breath. No focal neurologic deficits. DS: Diagnosis Discharge Diagnosis (1) Coffee ground emesis: Status: Acute (2) Enteritis: Status: Acute (3) Partial bowel obstruction: Status: Acute DS: Summary She is a pleasant 58-year-old male with past medical history of Crohn's disease who presented with complaints of nausea, vomiting, abdominal pain to the emergency department. Patient was admitted with the following treatments and services were provided in his care. Consultation was appreciated by gastroenterology for evaluation of nausea, vomiting, and abdominal pain. While hospitalized patient was treated briefly with empiric antibiotics. Patient was given a trial of steroid medication as well. Evaluation was also completed by colorectal surgery. Small bowel x-ray obtained did not show any definitive mechanical obstruction. Patient was slowly increased along in his diet and was able to tolerate p.o. without further symptoms of nausea, vomiting, or abdominal pain. Prior to discharge patient felt back to his baseline and was comfortable with discharge home with plan outpatient follow-up with his colorectal team. Patient to be discharged with outpatient follow-up with primary doctor as well. Time Spent with Patient Total time spent providing and/or coordinating discharge services: 30 minutes Quality: VTE Deep Vein Thrombosis/Pulmonary Embolism Present on Admission: No Results Impressions ITS Impressions Abdomen/Pelvis CT 09/05/18 21:23 CONCLUSION: 1. Status post total colectomy with right lower quadrant ileostomy. Small parastomal hernia. Diffusely dilated fluid-filled small bowel loops without transition point. Differential considerations include enteritis, adynamic ileus and partial distal obstruction potentially near the stoma. 2. Trace fluid/inflammatory change near the right lower quadrant. 3. Additional ancillary findings, as above. Chest X-Ray 09/05/18 21:23 CONCLUSION: The lungs are clear. Head CT 09/05/18 21:41 CONCLUSION: 1. No acute intracranial abnormality. . Abdomen X-Ray 09/07/18 00:00 CONCLUSION: Nonspecific bowel gas pattern with some air-filled loops of small and large bowel which are mildly prominent. The overall bowel gas pattern is not significantly changed compared to the prior exam from 2015. Small Bowel X-Ray 09/08/18 00:00 CONCLUSION: 1. There are multiple dilated loops of small bowel. Contrast appears to progress through the dilated loops of small bowel to the ileostomy bag in 1.5 hours. No definite mechanical obstruction is demonstrated. Discharge Plan Discharge Disposition Patient Disposition: Discharge Home Discharge Condition Condition: Good Discharge Order Discharge Orders: Discharge Order (Routine); Ordered 09/10/18 Ordered By: Yuri Ellison Physicians Team ED Provider: Michelle Kendall ED Midlevel Provider: Padilla Rodríguez Primary Care Provider: Primary Care [facility] Fink Attending Provider: Aamir Gray Other Providers: Ishan Skinner V ; Adam Rust Rxs /Orders / Referrals /Forms Prescriptions: No Action No Known Home Medications RF: 0 Referrals: Adam Rust MD [Physician] - See Instructions (please call for appointmetn in 7 days post discharge. ) Primary Care [facility] Fink [Primary Care Provider] - See Instructions Status ED Status: Left Department
--- NOTE | 2018-09-10 12:33 | P.PNGI ---
Subjective Interval history: Patient showing gradual improvement with decreased ileostomy output and some thickening of stool. No nausea no vomiting tolerating soft cardiac diet without any issues current hemoglobin 16.4, WBC count 14.7 Able to be up in chair and ambulating in the room <Livier Patel - Last Filed: 09/10/18 12:30> Physical Exam Vital signs: Vital Signs 09/09/18 16:00 09/09/18 20:00 09/09/18 23:45 Temperature 98.1 F 98.3 F Pulse Rate 72 84 79 Respiratory Rate 16 18 16 Blood Pressure 162/93 H 152/89 H 133/76 Pulse Oximetry 98 97 94 L 09/10/18 01:02 09/10/18 03:20 09/10/18 07:24 Temperature 97.7 F 98.5 F 97.7 F Pulse Rate 67 67 66 Respiratory Rate 18 18 17 Blood Pressure 139/85 135/86 140/90 Pulse Oximetry 94 L 95 98 Intake & Output 09/09/18 09/10/18 09/10/18 18:59 06:59 18:59 Intake Total 1300 / 1300 1300 / 1300 Balance 1300 / 1300 1300 / 1300 Weight 92.6 kg Intake: IV 1300 / 1300 1300 / 1300 NS Inj 1,000 ML @ 60 mls/hr IV. 1000 / 1000 1000 / 1000 CONT .[id number] [facility] Rx#:[id number] Cipro 400 MG/200 ML Inj 400 mg 200 / 200 200 / 200 In 200 ml @ 200 mls/hr IV.SIG Q12H [facility] Rx#:[id number] Flagyl 500 MG Inj 100 ML @ 100 100 / 100 100 / 100 mls/hr IV.SIG Q12H [facility] Rx#: [id number] Other: # Voids 2 Date of Last Bowel Movement 09/08/18 - Constitutional no acute distress, cooperative - Routine HEENT Exam Head: Present: normocephalic ENT: Present: mucous membranes moist - Routine Neck Exam Present: supple - Routine Respiratory Exam Present: CTA bilaterally - Routine Cardiovascular Exam Present: S1, S2 - Routine Abdominal Exam Present: soft, normoactive bowel sounds (Active bowel sounds, ileostomy appears to be draining less output and some thickening of the stools) - Routine Skin Exam Present: intact - Routine Neurological Exam Present: alert <Livier Patel - Last Filed: 09/10/18 12:30> Vital signs: Vital Signs 09/09/18 16:00 09/09/18 20:00 09/09/18 23:45 Temperature 98.1 F 98.3 F Pulse Rate 72 84 79 Respiratory Rate 16 18 16 Blood Pressure 162/93 H 152/89 H 133/76 Pulse Oximetry 98 97 94 L 09/10/18 01:02 09/10/18 03:20 09/10/18 07:24 Temperature 97.7 F 98.5 F 97.7 F Pulse Rate 67 67 66 Respiratory Rate 18 18 17 Blood Pressure 139/85 135/86 140/90 Pulse Oximetry 94 L 95 98 09/10/18 11:23 Temperature 97.4 F L Pulse Rate 72 Respiratory Rate 17 Blood Pressure 138/88 Pulse Oximetry 95 Intake & Output 09/09/18 09/10/18 09/10/18 18:59 06:59 18:59 Intake Total 1300 / 1300 1300 / 1300 Balance 1300 / 1300 1300 / 1300 Weight 92.6 kg Intake: IV 1300 / 1300 1300 / 1300 NS Inj 1,000 ML @ 60 mls/hr IV. 1000 / 1000 1000 / 1000 CONT .[id number] [facility] Rx#:[id number] Cipro 400 MG/200 ML Inj 400 mg 200 / 200 200 / 200 In 200 ml @ 200 mls/hr IV.SIG Q12H [facility] Rx#:[id number] Flagyl 500 MG Inj 100 ML @ 100 100 / 100 100 / 100 mls/hr IV.SIG Q12H [facility] Rx#: [id number] Other: # Voids 2 Date of Last Bowel Movement 09/08/18 <Srinath Westbrook A - Last Filed: 09/10/18 13:27> Results - Labs CBC & Chem 7: 09/08/18 06:55 09/08/18 06:55 Microbiology 09/05/18 21:39 Blood - Peripheral Aerobic Blood Culture - Final No growth in 5 days 09/05/18 21:39 Blood - Peripheral Anaerobic Blood Culture - Final No growth in 5 days 09/05/18 21:39 Blood - Peripheral Aerobic Blood Culture - Final Staph. capitis-ureolyticus 09/05/18 21:39 Blood - Peripheral Anaerobic Blood Culture - Final No growth in 5 days 09/08/18 19:32 Stool Stool for WBCs - Final No WBC's seen 09/08/18 19:32 Stool Enteric Pathogens (PCR) - Final No enteric pathogens detected by PCR (No Salmonella sp., Shigella sp., Campylobacter sp., Yersinia enterocolitica, Vibrio sp., Norovirus, or EHEC (Shiga Toxin 1 or Shiga Toxin 2) detected. <Livier Patel - Last Filed: 09/10/18 12:30> - Labs CBC & Chem 7: 09/08/18 06:55 09/08/18 06:55 Microbiology 09/05/18 21:39 Blood - Peripheral Aerobic Blood Culture - Final No growth in 5 days 09/05/18 21:39 Blood - Peripheral Anaerobic Blood Culture - Final No growth in 5 days 09/05/18 21:39 Blood - Peripheral Aerobic Blood Culture - Final Staph. capitis-ureolyticus 09/05/18 21:39 Blood - Peripheral Anaerobic Blood Culture - Final No growth in 5 days 09/08/18 19:32 Stool Stool for WBCs - Final No WBC's seen 09/08/18 19:32 Stool Enteric Pathogens (PCR) - Final No enteric pathogens detected by PCR (No Salmonella sp., Shigella sp., Campylobacter sp., Yersinia enterocolitica, Vibrio sp., Norovirus, or EHEC (Shiga Toxin 1 or Shiga Toxin 2) detected. <Srinath Westbrook - Last Filed: 09/10/18 13:27> Assessment and Plan (1) Coffee ground emesis Status: Acute Code(s): K92.0 - Hematemesis (2) Enteritis Status: Acute Code(s): K52.9 - Noninfective gastroenteritis and colitis, unspecified (3) Partial bowel obstruction Status: Acute Code(s): K56.600 - Partial intestinal obstruction, unspecified as to cause - Plan This patient is a 58-year-old male with past medical history significant for Crohn's disease. Patient presented to the emergency department at [facility] with complaint of lower abdominal cramping and nausea. Patient reports surgical history significant for colon resection with ileostomy. Patient states surgery performed in 2014. Upon arrival, patient endorsed increased ostomy output. He denies any noted bleeding but states that ostomy output has been copious and completely liquid. Upon consultation, patient denies any use of NSAIDs or home medications. Patient states that his ostomy output is usually brown colored with oatmeal-like consistency. He reports that every month for 3-5 days he experiences dark liquid output. Patient denies any fever or chills. Patient does endorse intermittent lower abdominal cramping around stoma site. Patient endorses last colonoscopy done in 2014 prior to surgery. Patient denies any history of EGD in the past. He denies use of tobacco or alcohol products. Denies any known family history for gastrointestinal disorders. Patient states that he drank a large amount of fluid yesterday after which he became nauseated and vomited. As per the attending, patient's emesis appeared to have coffee-ground type appearance. Our service has been consulted to evaluate patient for coffee-ground emesis. Coffee-ground emesis History of Crohn's disease Post colon resection with ileostomy-copious liquid output Patient presents with complaint of lower abdominal cramping and nausea times 3 days. Denies any fever or chills. States ostomy with increased liquid output. Denies any noted bleeding. Last colonoscopy done in 2014 prior to colon resection with ileostomy. 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 Large amount of fresh blood seen in the stomach despite continuous suction limited by the amount of clot there, limiting visualization of the stomach. Patient was kept intubated for airway protection. 04/10/[id number] Crohn's disease--severe colitis from the anus to the distal transverse colon. 09/06/2018-WBC 10.0 hemoglobin 17.6 hematocrit 50.8 platelet count 217 INR 1.0 total bilirubin 1.0 AST 22 ALT 35 alk phos 133 09/05/2018 lipase 94 09/08/2018 Patient awake and alert Denies abdominal pain Brown liquid stool noted in ileostomy drainage bag Patient reports increased nausea vomiting, 1200 mL's per staff nurse WBC 4.7 hemoglobin 16.4 hematocrit 46.6 09/05/2018 lipase 94 09/06/2018 total bili 1.0 AST 22 ALT 35 alk phos 133 09/08/2018 small bowel follow-through-. There are multiple dilated loops of small bowel. Contrast appears to progress through the dilated loops of small bowel to the ileostomy bag in 1.5 hours. No definite mechanical obstruction is demonstrated. 09/09/2018 Possible Crohn's flare Patient awake and alert Denies abdominal pain nausea or vomiting Ileostomy productive of moderate amount of brown to green dark colored stool Most recent labs 09/08/2018 as noted above 09/10/2018 patient showing gradual improvement with medical management. Able to ambulate in room and sit up in chair ileostomy output has diminished and patient has active bowel sounds. Partial SBO appears to be improving. Patient will need to follow-up in the GI office 2-4 weeks after discharge and be evaluated and followed for his history of Crohn's disease. If patient does not discharged today recheck KUB in the morning. Continue Cipro and Flagyl p.o. This patient has been seen by myself and and this note is written on his behalf <Livier Patel - Last Filed: 09/10/18 12:30> (1) Coffee ground emesis Status: Acute Code(s): K92.0 - Hematemesis (2) Enteritis Status: Acute Code(s): K52.9 - Noninfective gastroenteritis and colitis, unspecified (3) Partial bowel obstruction Status: Acute Code(s): K56.600 - Partial intestinal obstruction, unspecified as to cause - Attending Attestation Agree with above assessment and plan. <Srinath Westbrook - Last Filed: 09/10/18 13:27> <Livier Patel - Last Filed: 09/10/18 12:30> (3) Partial bowel obstruction Qualifiers: Intestinal obstruction type: unspecified Qualified Code(s): K56.600 - Partial intestinal obstruction, unspecified as to cause <Srinath Westbrook - Last Filed: 09/10/18 13:27> (3) Partial bowel obstruction Qualifiers: Intestinal obstruction type: unspecified Qualified Code(s): K56.600 - Partial intestinal obstruction, unspecified as to cause
[2018-09-10 12:59] VITALS: BP 138/88; PULSE 72; TEMP 97.4; O2SAT 95
== END 2018-09-10 15:13 | disposition home or self-care (01) | DRG 392 ==
LOC: NEDA 21:17 → NEPE 21:17 → NEPHCDU 09-06 01:34 → N06 09-10 00:43
PROVIDERS: ADMIT Internal Medicine; ATTEND Internal Medicine
DX: S01.81XD Laceration without foreign body of other part of head, subsequent encounter; Z90.49 Acquired absence of other specified parts of digestive tract; K92.0 Hematemesis; Z87.19 Personal history of other diseases of the digestive system; K52.9 Noninfective gastroenteritis and colitis, unspecified; Z93.2 Ileostomy status; X58.XXXD Exposure to other specified factors, subsequent encounter; R10.9 Unspecified abdominal pain
CPT/HCPCS: 70450; 71010; 71045; 74019; 74177; 74250; 80048; 80053; 81001; 83605; 83690; 83735; 85025; 85610; 85730; 86850; 86900; 86901; 87040; 87077; 87149; 87186; 87205; 87328; 87329; 87493; 87506; 90761; 90774; 90775; 90776; 90784; 96361; 96374; 96375; 96376; 99285; C8952; C9113; G0378; J0744; J2270; J2405; J2765; J2920; J7030; Q9963; Q9967